=== PATIENT | female | born 1970 | race Caucasian/White ===

== ENCOUNTER 2019-08-14 11:14 | Emergency (ER) | payer OTHER, SELFPAY ==
--- NOTE | ~2019-08-14 | CT_ITS ---
EXAMINATION: CT brain wo con EXAM DATE: 08/14/2019 11:50 INDICATION: Headache, blurred vision to right eye. Right-sided facial droop, hemiparesis since Monday . TECHNIQUE: Spiral CT of the head was performed without contrast. Axial, coronal and sagittal images were reviewed. The dose-length product (DLP) for this examination was 605.33 mGy-cm. The exposure w as tailored according to patient size, and iterative reconstruction (ASIR) was used as additional dos e reduction technique. Comparison is made to prior examination from 09/09/2018. FINDINGS: There is no acute intraparenchymal hemorrhage. No evidence of intraparenchymal brain mass lesion. No evidence of acute infarction. There is no mass effect or midline shift. The ventricles are normal in size. There are no extra-axial collections. There are no acute calvarial fractures. T he orbits are unremarkable. Soft tissue is unremarkable. The visualized sinuses and mastoid air brian ls are well aerated. IMPRESSION: 1. No acute intracranial findings. Reviewed, dictated and finalized at location B.
[2019-08-14 11:18] VITALS: BP 159/75; PULSE 79; RESP 17; TEMP 36.9; O2SAT 95
--- NOTE | 2019-08-14 11:36 | PC.NURSE ---
Pt states for last 4 days she has started having R sided facial droop and then 3 days ago started having SAMAYOA. Pt states 5 days ago she bit her tongue and thought that started her symptoms. Pt states her PCP asked her to come to ER for investigation of temporal artheritis. Pt states she has RA and is immunocompromised. Pt states she has pain in her R temporal area and blurred vision. Pt is A&O x4. Pt has R sided facial droop. Pt taking steroid dose pack. Pt has no other neuro deficits.
[2019-08-14 12:05] LABS: Basophils Absolute Auto 0.1 K/mm3 (0.0-0.1); Basophils Percent Auto 0.4 % (0.2-1.2); Eosinophils Absolute Auto 0.2 K/mm3 (0-0.3); Eosinophils Percent Auto 0.9 % (0-4.4); Hematocrit 41.9 % (37.0-47.0); Hemoglobin 13.7 g/dL (12.0-15.0); Immature Granulocyte Absolute 0.12 K/mm3 (0.00-0.031); Immature Granulocyte Percent A 0.6 % (0-0.5); Lymphocytes Absolute Auto 3.51 K/mm3 (0.9-3.2); Lymphocytes Percent Auto 16.1 % (18.3-44.2); Mean Corpuscular HGB Conc 32.7 g/dl (32-36); Mean Corpuscular Hemoglobin 30.7 pg (26-34); Mean Corpuscular Volume 93.9 fl (80-100); Mean Platelet Volume 10.5 fl (7.4-10.4); Monocytes Absolute Auto 1.2 K/mm3 (0.1-0.6); Monocytes Percent Auto 5.5 % (2.6-8.5); Neutrophils Absolute Auto 16.7 K/mm3 (1.3-6.7); Neutrophils Percent Auto 76.5 % (45.5-73.1); Platelet Count Result 255 k/mm3 (150-375); Red Blood Count 4.46 M/mm3 (4.2-5.4); Red Cell Distribution Width 14.5 % (11.5-14.5); White Blood Count 21.8 K/mm3 (4.5-10.0)
--- NOTE | 2019-08-14 12:17 | ED.GENADULT ---
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 Patient denies any other deficits or complaints and on arrival is in the room in no distress Related Data Home Medications Medication Instructions Recorded Confirmed calcium carbonate [Calcium 500] 500 mg PO DAILY 05/24/19 06/03/19 duloxetine 30 mg PO BID 05/24/19 06/03/19 ergocalciferol (vitamin D2) 1,250 mcg PO DAILY 05/24/19 06/03/19 fluticasone propionate 50 mcg INTRANASAL PRN PRN 05/24/19 06/03/19 levothyroxine 50 mcg PO DAILY 05/24/19 06/03/19 pregabalin 150 mg PO DAILY 05/24/19 06/03/19 tramadol 50 mg PO PRN PRN 05/24/19 06/03/19 Allergies Allergy/AdvReac Type Severity Reaction Status Date / Time ciprofloxacin Allergy Severe JOINT PAIN. Verified 08/14/19 11:23 triamcinolone [From Kenalog] AdvReac Severe Muscle Pain Verified 08/14/19 11:23 sertraline AdvReac Unknown lethargic, Verified 08/14/19 11:23 couldn't function at all Review of Systems Review of Systems: All systems reviewed & are unremarkable except as noted in HPI and below PMFSH Past Medical History Medical History Asthma COPD (chronic obstructive pulmonary disease) Esophageal dysmotility Hypothyroid Surgical History Surgical History H/O hysterectomy for benign disease History of bilateral tubal ligation History of removal of ovarian cyst S/P tonsillectomy and adenoidectomy Status post breast augmentation Social History Social History (Updated 08/14/19 @ 12:41 by Chilo Schwab PA-C) Smoking status: Current every day smoker Exam Narrative: Exam Narrative: GENERAL: Well-appearing, well-nourished, and in no acute distress. HEAD: Normocephalic, atraumatic. Right temporal tenderness with no other deformities noted EYES: PERRLA and EOMI. ENT: Nares clear, no rhinorrhea or epistaxis. Mucous membranes moist. Oropharynx without tonsillar hypertrophy exudate or other lesions. Bilateral TMs pearly hood nonbulging NECK: Supple. No adenopathy or masses. CHEST: Clear to auscultation. No respiratory distress. No wheezes rales or rhonchi HEART: Regular rate and rhythm. No murmur heard. EXTREMITIES: Normal range of motion. No edema. SKIN: Warm, dry, no rash. NEURO: Cranial nerves II through XII grossly intact except for right-sided cranial nerve VII deficit with involvement of the right forehead. Alert and oriented x3. Normal speech and gait. Cerebellar intact PSYCH: Normal mood and affect. Course Course Emergency Course: Patient in the room in no distress aware of case findings treatment plan and diagnosis Vital Signs Vital signs: Vital Signs Temperature 98.5 F 08/14/19 11:18 Pulse Rate 79 08/14/19 11:18 Respiratory Rate 17 08/14/19 11:18 Blood Pressure 159/75 H 08/14/19 11:18 Pulse Oximetry 95 08/14/19 11:18 Temperature 98.5 F 08/14/19 11:18 Pulse Rate 79 08/14/19 11:18 Respiratory Rate 17 08/14/19 11:18 Blood Pressure 159/75 H 08/14/19 11:18 Pulse Oximetry 95 08/14/19 11:18 Medical Decision Making MDM Narrative Medical decision making narrative: Patient with findings consistent with Olmos's palsy. Patients headache was not sudden or maximal in onset. Subarachnoid hemorrhage is felt to be unlikey a
[2019-08-14 12:19] LABS: CRP < 0.5 mg/dL (<1.0)
[2019-08-14 12:51] LABS: Erythrocyte Sedimentation Rate 16 mm/hr (0-20)
== END 2019-08-14 13:11 | disposition home or self-care (01) ==
PROVIDERS: Emergency Medicine Emergency Medical Services; Emergency Provider Emergency Medicine; PCP Nurse Practitioner Adult Health
DX: G51.0 Bell's palsy (principal); J44.9 Chronic obstructive pulmonary disease, unspecified; E03.9 Hypothyroidism, unspecified; F17.200 Nicotine dependence, unspecified, uncomplicated
CPT/HCPCS: 36415; 70450; 85025; 85652; 86140; 99284

== ENCOUNTER 2021-04-26 09:29 | Outpatient (RCR) | payer OTHER, SELFPAY ==
[2021-04-26 14:19] VITALS: BP 140/60; PULSE 79; RESP 24; TEMP 36.3; O2SAT 96
[2021-04-26] MEDS: ACETAMINOPHEN 325 MG TABLET 650 MG PO (14:22)
[2021-04-26] MEDS: FAMOTIDINE 20 MG TABLET PO (14:23)
[2021-04-26] MEDS: diphenhydrAMINE HCl CAP 25 MG CAPSULE PO (14:23)
[2021-04-26 15:53] VITALS: BP 140/72
--- NOTE | 2021-04-27 09:25 | PC.NURSE ---
Called Ms Olivo and she stated she is doing better and slept well last night,the best she slept in a few days. She has no questions at this time.
== END 2021-04-26 17:00 ==
LOC: AMCINF 09:29
PROVIDERS: PCP Nurse Practitioner Adult Health; Visit Provider Internal Medicine Hematology & Oncology
DX: U07.1 COVID-19 (principal); D84.9 Immunodeficiency, unspecified
CPT/HCPCS: A9270; M0245; Q0245

== ENCOUNTER 2024-06-04 00:20 | Day surgery (SDC) | payer OTHER, SELFPAY ==
[2024-05-27 14:26] VITALS: BMI 24.3
--- OUTSIDE RECORDS SUMMARY | 2024-06-04 00:25 | XMS_ITS | Referral Summary ---
Author Organization [facility] Address [address] [place] [address] Care Team Providers Care Museum Registrar Name Role Phone Nica Noe SARAH Primary Care Provider [phone] Encounters Date Type Department Care Team Description 05/11/2024 3:00 PM CLUTCH OPERATOR Clinical Support [facility] [place] [address] [place] [address] Blood pressure check (Primary Dx) from Last 3 Months Allergies Active Allergy Reactions Criticality Noted Date Comments Ciprofloxacin Joint pain Reaction: joint pain, , Reaction: joint pain, , , Leflunomide Unknown High 04/06/2020 Medications gabapentin (NEURONTIN) 100 mg capsule daily Active methotrexate 2.5 mg tablet methotrexate sodium 2.5 mg tablet TK 5 TS PO 1 TIME WEEKLY IN THE MORNING AND IN THE ROBERT 03/03/20 20 Active buPROPion XL (Wellbutrin XL) 150 mg 24 hr tablet daily 02/15/20 13 Active traMADoL (ULTRAM) 50 mg tablet tramadol 50 mg tablet TK 1 T PO BID 03/15/20 20 Active vortioxetine (Trintellix) 10 mg tablet daily Active cyanocobalamin (Vitamin B-12) 1,000 mcg sublingual tablet Active albuterol HFA (ProAir HFA) 90 mcg/actuation inhaler ProAir HFA 90 mcg/actuation aerosol inhaler INHALE 2 PUFFS PO Q 4 H PRN 05/08/18 70 Active folic acid (FOLVITE) 1 mg tabletIndications:in flammatory arthritis-take with methotrexate Take 1 tablet (1 mg total) by mouth daily 90 tablet 3 06/23/19 23 Active phentermine (ADIPEX-P) 37.5 mg tabletIndications:We ight gain TAKE 1 TABLET(37.5 MG) BY MOUTH DAILY BEFORE BREAKFAST 30 tablet 09/22/19 23 Active levothyroxine (SYNTHROID) 100 mcg tablet Take 1 tablet (100 mcg total) by mouth daily 90 tablet 1 11/04/[address] (PROTONIX) 40 mg EC tabletIndications:Sy mptomatic Gastroesophageal Reflux Disease Take 1 tablet (40 mg total) by mouth daily 90 tablet 03/22/20 23 Active Active Problems Problem Noted Date Diagnosed Date Encounters for administrative purpose 10/06/2022 Assessment & Plan (10/06/2022 2:07 PM CDT): Financial forms completed for [employer]. Copy of forms made to be scanned in to EMR for review Patient is encouraged to call previous provider office to have records sent to this office for review Follow up as scheduled-sooner prn Overweight with body mass in dex (BMI) of 26 to 26.9 in adult 10/06/2022 Assessment & Plan (10/06/2022 2:10 PM CDT): Chronic- improving Continue with Phentermine 37.5 mg daily Continue healthy low fat, low calorie diet Increase activity (20 to 30 minutes at least 5 days a week) to help maintain healthy weight and lifestyle Will plan to stop Phentermine when BMI is 25 or lower Diverticulosis 06/23/2022 Encounter for medical examination to establish c are 06/23/2022 Assessment & Plan (06/23/2022 3:22 PM CLUTCH OPERATOR): Fasting labs ordered- cbc, cmp, lipids, tsh Follow up in 1 year-annual Future labs ordered Continue current medications as directed Gastroesophageal reflux disease without esophagi tis 06/23/2022 Assessment & Plan (06/23/2022 2:56 PM CLUTCH OPERATOR): GI consulted Avoid greasy, spicy, fried, fatty foods Order and continue Pantoprazole 40 mg daily Moderate episode of recurrent major depressive d isorder 06/23/2022 Assessment & Plan (10/06/2022 2:05 PM CDT): Chronic- stable wit current medication regimen Continue with Bupropion 150 mg daily and Trintellix 10 mg daily Encouraged to call and schedule appointment with behavioral counseling- we discussed the importance of having someone qualified to talk with to help with keeping depression controlled and that medication and counseling provide better results than medication alone Assessment & Plan (06/23/2022 2:59 PM CLUTCH OPERATOR): Continue current Bupropion and Trintellix Continue to monitor mood status Will plan on managing medications Encouraged to seek counseling-patient advised that medication and counseling together have more positive outcomes than medication alone Encouraged to seek emergency help if having suicidal thoughts Breast implant status 06/23/2022 Assessment & Plan (06/23/2022 2:57 PM CLUTCH OPERATOR): Bilateral breast implant Recent finding of left ruptured implant Consult Dr. Ugalde Weight gain 06/23/2022 Assessment & Plan (06/23/2022 3:17 PM CLUTCH OPERATOR): Encouraged to join club for water aerobics to help lose weight without pain to joints Healthy diet-low carb, low fat Lab ordered-TSH Continue levothyroxine as directed History of colon polyps 06/23/2022 Assessment & Plan (06/23/2022 3:03 PM CLUTCH OPERATOR): GI consult ordered for diagnostic screening Healthy diet Tobacco use 06/23/2022 Assessment & Plan (06/23/2022 3:07 PM CLUTCH OPERATOR): Encouraged to stop smoking We discussed health risks and worsening of pulmonary emphysema if continues to smoke Centrilobular emphysema 06/23/2022 Assessment & Plan (06/23/2022 3:17 PM CLUTCH OPERATOR): Stop smoking Plan to increase Bupropion if needed to help with smoking cessation Will plan to order ct chest-routine to monitor for worsening of emphysema Continue with albuterol inh as directed Arthritis 06/27/2013 Overview (08/11/2016): Inflammatory arthritis Assessment & Plan (06/23/2022 3:16 PM CLUTCH OPERATOR): Continue current medication methotrexate with folic acid Continue Tramadol as directed Resolved Problems Problem Noted Date Diagnosed Date Resolved Date History of nephrolithiasis 06/23/2022 0 06/23/2022 BMI 27.0-27.9,adult 06/23/2022 10/07/19 Assessment & Plan (06/23/2022 2:55 PM CLUTCH OPERATOR): Continue current medication phentermine to help manage weight control Phentermine ordered Healthy diet Water exercises Closed head injury 01/27/2021 Concussion with no loss of consciousness 01/27/2021 06/23/2022 Forehead contusion, initial encounter 01/27/2021 06/23/2022 Pleurisy 06/27/2013 06/23/2022 Overview (08/11/2016): Pleuritis Cardiomyopathy 06/27/2013 06/23/2022 Overview (08/11/2016): Cardiomyopathy Immunizations Name Administration Dates Next Due Influenza, Unspecified 06/23/2022(Deferr ed: Patient Refused),02/05/2021(Deferred: Patient Refused) Social History Tobacco Use Types Packs/Day Years Used Date Smoking Tobacco: Every Day Cigarettes Smokeless Tobacco: Never Tobacco Cessation:Ready to Q uit: Not Asked; Counseling Given: Yes Alcohol Use Standard Drinks/Week Comments No 0 (1 standard drink = 0.6 oz pur e alcohol) PHQ-2 Answer Date Recorded PHQ-2 Total Score (If total score is 3 or more points, staff should administer the PHQ-9) 0 10/06/2022 Comments No Sex and Gender Information Value Date Recorded Sex Assigned at Not on file Legal Sex Female 1:23 AM CLUTCH OPERATOR Gender Identity Not on file Sexual Orientation Not on file Last Filed Vital Signs Vital Sign Reading Time Taken Comments Blood Pressure 184/114 05/11/2024 3:08 PM CLUTCH OPERATOR Pulse 86 10/06/2022 1:37 PM CDT Temperature 37.1 ??C (98.8 ??F) 09/25/2021 3:21 PM CD T Respiratory Rate 18 10/06/2022 1:37 PM CDT Oxygen Saturation 96% 10/06/2022 1:37 PM CDT Inhaled Oxygen Concentration - - Weight 74.8 kg (165 lb) 10/06/2022 1:37 PM CDT Height 167.6 cm (5' 6 ) 10/06/2022 1:37 PM CDT Body Mass Index 26.63 10/06/2022 1:37 PM CDT Plan of Treatment Not on file Insurance Member Subscriber Plan / Payer ( fective 2021-Present) Name:Belinda Olivo Relation to Subscriber:Self Name:Belinda Olivo Payer ID:[id number] ([facility]) Group ID:[id number] Type:CIGNA HMO/PPO Address: [id number] [place] [phone] [facility] Member Subscriber Plan / Payer ( fective 2021-Present) Name:Belinda Olivo Relation to Subscriber:Self Name:Belinda Olivo Payer ID:[id number] (NA) Group ID:[id number] Type:CIGNA HMO/PPO Address: [address] [place] [address] [employer] Member Subscriber Plan / Payer (Ef fective 2021-Present) Name:Geovani Belinda Chelsea Relation to Subscriber:Self Name:Olivo Belinda L Payer ID:[id number] (NAIC) Group ID:[id number] Type:GAURI HMO/PPO Address: [facility] [id number] [place] [id number] Care Teams Museum Registrar Relationship Specialty Start Date End Date Nica Noe NP [address] [place] [id number] PCP - General Nurse Practitioner 05/11/24
--- OUTSIDE RECORDS SUMMARY | 2024-06-04 00:25 | XMS_ITS | Clinical Summary ---
Author Organization [facility] Address [address] [facility] [address] [place] [address] Phone Care Team Providers Care Automotive Service Assistant Name Role Phone Eli Pryor MD Primary Care Provider [phone] Allergies Active Allergy Reactions Criticality Noted Date Comments Fluocinolone Other (see Comments) 04/09/2015 cipro affects my joints Medications DULoxetine (CYMBALTA) [address] Particles Take 30 mg by mouth 2 times daily. Active aspirin EC 81 MG Tablet Delayed Response Take 81 mg by mouth daily. Active acetaminophen (TYLENOL) 325 MG Tablet Take 1 Tab by mouth every 4 hours as needed for Pain or Fever (for temperature greater than 100.4 F). Do not exceed 4000 mg of acetaminophen in 24 hour from all sources. 5 Active Active Problems No known active problems Social History Tobacco Use Types Packs/Day Years Used Date Smoking Tobacco: Former Cigarettes 1 32 0 02/04/1982 - 02/04/2014 Alcohol Use Standard Drinks/Week Comments Yes 0 (1 standard drink = 0.6 oz pur e alcohol) occasional beer Comments No Sex and Gender Information Value Date Recorded Sex Assigned at Not on file Legal Sex Female 9:59 PM CDT Gender Identity Not on file Sexual Orientation Not on file Last Filed Vital Signs Vital Sign Reading Time Taken Comments Blood Pressure 118/80 05/20/2015 8:30 AM REFRIGERATING MACHINE OPERATOR Pulse 60 05/20/2015 8:30 AM REFRIGERATING MACHINE OPERATOR Temperature 35.9 ??C (96.6 ??F) 04/09/2015 12:[address] Respiratory Rate 16 04/09/2015 12:05 PM REFRIGERATING MACHINE OPERATOR Oxygen Saturation 97% 04/09/2015 12:05 PM REFRIGERATING MACHINE OPERATOR Inhaled Oxygen Concentration - - Weight 58.5 kg (129 lb) 05/20/2015 8:30 AM REFRIGERATING MACHINE OPERATOR Height 167.6 cm (5' 6 ) 05/20/2015 8:30 AM REFRIGERATING MACHINE OPERATOR Body Mass Index 20.82 05/20/2015 8:30 AM REFRIGERATING MACHINE OPERATOR Plan of Treatment Health Maintenance Due Date Last Done Comments Hepatitis C Virus (HCV) Screening 1970 TdaP Immunization 1970 Hepatitis B Immunization (1 of 3 - 19+ 3-dose series) 01/18/1987 Colonoscopy 01/18/2013 Colorectal Cancer Screening 01/18/2013 Cologuard 01/18/2018 Immunochemical Fecal Occult Blood 01/18/2018 Mammogram 01/18/2018 Pneumococcal Immunization (5 0+ years) (1 of 1 - PCV) 01/18/2018 Zoster Immunization (1 of 2) 01/18/2018 Influenza Immunization (#1) 2024 SARS-COV-2 Immunization ( - season) 2024 Respiratory Syncytial Virus (RSV) Immunization (Adult) (1 - 1-dose 75+ series) 01/18/2043 Meningococcal Immunization (ACWY) Aged Out No longer eligible based on patient's age to complete this topic Pneumococcal Immunization Combined Aged Out No longer eligible based on patient's age to complete this topic Rotavirus Immunization Aged Out No lo nger eligible based on patient's age to complete this topic Care Teams Automotive Service Assistant Relationship Specialty Start Date End Date Eli Pryor MD [address] [facility] [address] [address] [place] [address] PCP - General Family Medicine 03/17/15
--- OUTSIDE RECORDS SUMMARY | 2024-06-04 00:25 | XMS_ITS | Referral Summary ---
Author Organization [facility] Address [address] [place] [address] [place] [address] Care Team Providers Care Ship Worker Name Role Phone Nica Noe AIDEE-PREFITTER Primary Care Provider + Addy Pepe MD Unavailable Pooja Miller Unavailable [phone] Source Comments [facility],non-owned Affiliates and Associated Physician Practices is amultiple site organization consisting of ambulatory clinics and hospital sitesin [place], [place], [place] and [place]. This disclosure is being madepursuant to the Care Everywhere program and may not contain all information available regarding this patient. Last updated 18.[facility] Encounters Date Type Department Care Team Description 05/23/2024 11:30 AM ORACLE R12 DEVELOPER Office Visit [facility] - Rheumatology [address] [place] [id number] Pooja Miller APRN-CNP from Last 3 Months Allergies Active Allergy Reactions Criticality Noted Date Comments Advair Diskus Other 04/06/2020 Ciprofloxacin Other Medium 04/06/2020 Reaction: joint pain, , Reaction: joint pain, , , Fluocinolone Other 04/09/2015 cipro affects my joints Kenalog Dizziness 04/06/2020 Leflunomide Renal Injury High 04/06/2020 Paroxetine Dizziness 04/06/2020 Rofecoxib Nausea and/or Vomiting 04/06/2020 Varenicline Other 04/06/2020 Medications * Be aware that medications may not be up to date on this document. Alwaysverify current medications with the patient. Medication Sig Dispensed Refills Start Date End Date Status methylPREDNISolone (MEDROL DOSEPAK) 4 MG tablet Take by mouth as needed 08/11/2019 Active pantoprazole EC (PROTONIX) 40 MG tablet Take 1 (one) tablet by mouth once daily 03/13/2020 Active traMADol (ULTRAM) 50 MG tablet 03/15/2020 Active albuterol HFA (PROVENTIL;VENTOLI N;PROAIR) 108 (90 Base) MCG/ACT inhaler ProAir HFA 90 mcg/actuation aerosol inhaler INHALE 2 PUFFS PO Q 4 H PRN Active vortioxetine (Trintellix) 10 MG tablet Take 1 (one) tablet by mouth once daily Active buPROPion XL 24hr (Wellbutrin-XL) 150 MG tablet Take 1 (one) tablet by mouth once daily Active Acetaminophen (TYLENOL EXTRA STRENGTH PO) Take 200 mg by mouth 2 times daily as needed Active levothyroxine (Synthroid) 100 MCG tablet Take 1 (one) tablet by mouth once daily 11/03/2022 Active methotrexate 2.5 MG tabletIndications: Undifferentiated inflammatory arthritis (HCC) Take 10 (ten) tablets by mouth every 7 days 25mg po qweek 120 tablet 1 11/20/2023 Active folic acid (Folvite) 1 MG tabletIndications: Undifferentiated inflammatory arthritis (HCC) Take 1 (one) tablet by mouth once daily 90 tablet 11/20/2023 Active adalimumab (Humira) 40 MG/0.8ML injection Inject 0.8 mL subcutaneously every 14 days Active lisinopril (Prinivil; Zestril) 20 MG tablet Take 1 (one) tablet by mouth once daily Active Active Problems Problem Noted Date Diagnosed Date Vertigo 04/06/2020 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 Neuropathy 04/06/2020 UC (ulcerative colitis) 04/06/2020 Esophageal motility disorder 04/06/2020 Rheumatoid arthritis of [facility] sites with negative rheumatoid factor 02/25/2020 Social History Tobacco Use Types Packs/Day Years Used Date Smoking Tobacco: Every Day Cigarettes Smokeless Tobacco: Never Tobacco Cessation:Ready to Q uit: Not Asked; Counseling Given: Not Answered Alcohol Use Standard Drinks/Week Comments No 0 (1 standard drink = 0.6 oz pur e alcohol) PHQ-2 Answer Date Recorded Patient Health Questionnaire-2 Score 0 11/20/2023 Sex and Gender Information Value Date Recorded Sex Assigned at Not on file Gender Identity Not on file Sexual Orientation Not on file Last Filed Vital Signs Vital Sign Reading Time Taken Comments Blood Pressure 136/86 05/23/2024 11:46 AM ORACLE R12 DEVELOPER Pulse 80 05/23/2024 11:46 AM ORACLE R12 DEVELOPER Temperature 36.6 ??C (97.9 ??F) 12/16/2020 8:52 AM CD T Respiratory Rate 18 05/23/2024 11:46 AM ORACLE R12 DEVELOPER Oxygen Saturation 96% 05/23/2024 11:46 AM ORACLE R12 DEVELOPER Inhaled Oxygen Concentration - - Weight 68.7 kg (151 lb 6.4 oz) 05/23/2024 11:46 AM ORACLE R12 DEVELOPER Height 167.6 cm (5' 6 ) 05/23/2024 11:46 AM ORACLE R12 DEVELOPER Body Mass Index 24.44 05/23/2024 11:46 AM ORACLE R12 DEVELOPER Plan of Treatment Upcoming Encounters Date Type Department Care Team (Late st Contact Info) Description 08/20/2024 10:30 AM CDT Office Visit [facility] - Rheumatology [address] [facility] [address] [place] [address] Pooja Miller, PORTAINER OPERATOR-PREFITTER [address] [facility] [address] [place] [address] Procedures Procedure Name Priority Date/Time Associated Diagnosis Comments HEPATITIS PANEL 02/19/2024 12:58 PM CDT from Last 3 Months or Most Recently Relevant to Health Maintenance Results * HEPATITIS PANEL (02/19/2024 12:58 PM CDT) Hepatitis A Virus Antibody Total NON-REACTI VE NON-REACT [facility] Comment: For additional information, please refer to http://[employer]Plus.Doctor Fun/faq/BTM214 (This link is being provided for informational/ educational purposes only.) Hepatitis B Virus Surface Antibody NON-REACTI VE NON-REACT [facility] Hepatitis B Virus Surface Antigen NON-REACTI VE NON-REACT [facility] Comment: For additional information, please refer to http://[employer]Plus.Citizenside.Chosen.fm/faq/SPR131 (This link is being provided for informational/ educational purposes only.) Hepatitis B Core Virus Antibody Total NON-REACTI VE NON-REACT [facility] Pattern Comment: For additional information, please refer to http://100Plus.Doctor Fun/faq/KJB300 (This link is being provided for informational/ educational purposes only.) Hepatitis C Antibody NON-REACTI VE NON-REACT [facility] Comment: HCV antibody was non-reactive. There is no laboratory evidence of HCV infection. In most cases, no further action is required. However, if recent HCV exposure is suspected, a test for HCV RNA (test code 55562) is suggested. For additional information please refer to http://100Plus.Doctor Fun/faq/FYH91x7 (This link is being provided for informational/ educational purposes only.) REPORT COMMENT: FASTING:YES Test Performed at: [facility] [address] [place], [place] ??[phone] MK GARIBAY MD 02/19/2024 12:5 8 PM CDT 02/19/2024 12:58 PM CDT Addy Pepe MD [facility] Organization Address City/State/ZIP Co de Phone Number [facility] [address] [place] [address] from Last 3 Months or Most Recently Relevant to Health Maintenance Care Teams Ship Worker Relationship Specialty Start Date End Date Nica Noe APRN-PREFITTER [facility] [place] [id number] PCP - General Nurse Practitioner 12/14/22 [place] [address] [place] [id number] Rheumatology 12/14/22 Pooja Miller APRN-PREFITTER [address] [place] [address] Nurse Practitioner 05/23/24
--- OUTSIDE RECORDS SUMMARY | 2024-06-04 00:25 | XMS_ITS | Patient Health Summary ---
Author Organization [facility] Address [address] [address] Care Team Providers Care Lumber Chain Offbearer Name Role Phone Nica Noe PELLETISING EXTRUDER OPERATOR-SOLAR LAB TECHNICIAN Primary Care Provider + Addy Pepe MD Unavailable Pooja Miller APRN-SOLAR LAB TECHNICIAN Unavailable [phone] Note from [facility],non-owned Affiliates and Associated Physician Practices is amultiple site organization consisting of ambulatory clinics and hospital sitesin [place], [place], [place] and [place]. This disclosure is being madepursuant to the Care Everywhere program and may not contain all information available regarding this patient. Last updated 18.[facility] Allergies * Advair Diskus(Other) * Ciprofloxacin(Other) -Medium Criticality * Fluocinolone(Other) * Kenalog(Dizziness) * Leflunomide(Renal Injury) -High Criticality * Paroxetine(Dizziness) * Rofecoxib(Nausea and/or Vomiting) * Varenicline(Other) Medications * Be aware that medications may not be up to date on this document. Alwaysverify current medications with the patient. * methylPREDNISolone (MEDROL DOSEPAK) 4 MG tablet(Started 08/11/2019) Take by mouth as needed * pantoprazole EC (PROTONIX) 40 MG tablet(Started 03/13/2020) Take 1 (one) tablet by mouth once daily * traMADol (ULTRAM) 50 MG tablet(Started 03/15/2020) * albuterol HFA (PROVENTIL;VENTOLIN;PROAIR) 108 (90 Base) MCG/ACT inhaler ProAir HFA 90 mcg/actuation aerosol inhaler INHALE 2 PUFFS PO Q 4 H PRN * vortioxetine (Trintellix) 10 MG tablet Take 1 (one) tablet by mouth once daily * buPROPion XL 24hr (Wellbutrin-XL) 150 MG tablet Take 1 (one) tablet by mouth once daily * Acetaminophen (TYLENOL EXTRA STRENGTH PO) Take 200 mg by mouth 2 times daily as needed * levothyroxine (Synthroid) 100 MCG tablet(Started 11/03/2022) Take 1 (one) tablet by mouth once daily * methotrexate 2.5 MG tablet(Started 11/20/2023) Take 10 (ten) tablets by mouth every 7 days 25mg po qweek 1 refill by 11/19/2024 * folic acid (Folvite) 1 MG tablet(Started 11/20/2023) Take 1 (one) tablet by mouth once daily * adalimumab (Humira) 40 MG/0.8ML injection Inject 0.8 mL subcutaneously every 14 days * lisinopril (Prinivil; Zestril) 20 MG tablet Take 1 (one) tablet by mouth once daily Active Problems Problem Noted Date Diagnosed Date Vertigo 04/06/2020 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 Neuropathy 04/06/2020 UC (ulcerative colitis) 04/06/2020 Esophageal motility disorder 04/06/2020 Rheumatoid arthritis of [facility] sites with negative rheumatoid factor 02/25/2020 Social [...] Comments Blood Pressure 136/86 05/23/2024 11:46 AM GUARD RANGE Pulse 80 05/23/2024 11:46 AM GUARD RANGE Temperature 36.6 ??C (97.9 ??F) 12/16/2020 8:52 AM CD T Respiratory Rate 18 05/23/2024 11:46 AM GUARD RANGE Oxygen Saturation 96% 05/23/2024 11:46 AM GUARD RANGE Inhaled Oxygen Concentration - - Weight 68.7 kg (151 lb 6.4 oz) 05/23/2024 11:46 AM GUARD RANGE Height 167.6 cm (5' 6 ) 05/23/2024 11:46 AM GUARD RANGE Body Mass Index 24.44 05/23/2024 11:46 AM GUARD RANGE Procedures * QUANTIFERON-TB GOLD PLUS 1-TUBE(Performed 02/19/2024) * HEPATITIS PANEL(Performed 02/19/2024) * C-REACTIVE PROTEIN(Performed 02/19/2024) * CBC W AUTO DIFFERENTIAL(Performed 02/19/2024) * ERYTHROCYTE SEDIMENTATION RATE(Performed 02/19/2024) * COMPREHENSIVE METABOLIC PANEL(Performed 02/19/2024) * URIC ACID BLOOD(Performed 02/19/2024) * US EXTREMITY RIGHT COMP JOINT(Performed 10/26/2023) Performed for Seronegative arthritis, Immunosuppressed status (HCC), High risk medication use, Polyarthralgia * URIC ACID BLOOD(Performed 05/19/2023) Performed for Immunosuppressed status (HCC), High risk medication use, Polyarthralgia * ERYTHROCYTE SEDIMENTATION RATE(Performed 05/19/2023) Performed for Immunosuppressed status (HCC), High risk medication use, Polyarthralgia * C-REACTIVE PROTEIN(Performed 05/19/2023) Performed for Immunosuppressed status (HCC), High risk medication use, Polyarthralgia * COMPREHENSIVE METABOLIC PANEL(Performed 05/19/2023) Performed for Immunosuppressed status (HCC), High risk medication use, Polyarthralgia * CBC W AUTO DIFFERENTIAL(Performed 05/19/2023) Performed for Immunosuppressed status (HCC), High risk medication use, Polyarthralgia * CYCLIC CITRULLINATED PEPTIDE(CCP) AB IGG(Performed 02/09/2023) Performed for Seronegative arthritis, Immunosuppressed status (HCC), High risk medication use, Polyarthralgia * KAROLINA BLOOD SCREEN W/REFLEX TITER(Performed 02/09/2023) Performed for Seronegative arthritis, Immunosuppressed status (HCC), High risk medication use, Polyarthralgia * CBC W AUTO DIFFERENTIAL(Performed 02/09/2023) Performed for Seronegative arthritis, Immunosuppressed status (HCC), High risk medication use, Polyarthralgia * CK BLOOD(Performed 02/09/2023) Performed for Seronegative arthritis, Immunosuppressed status (HCC), High risk medication use, Polyarthralgia * COMPREHENSIVE METABOLIC PANEL(Performed 02/09/2023) Performed for Seronegative arthritis, Immunosuppressed status (HCC), High risk medication use, Polyarthralgia * C-REACTIVE PROTEIN(Performed 02/09/2023) Performed for Seronegative arthritis, Immunosuppressed status (HCC), High risk medication use, Polyarthralgia * ERYTHROCYTE SEDIMENTATION RATE(Performed 02/09/2023) Performed for Seronegative arthritis, Immunosuppressed status (HCC), High risk medication use, Polyarthralgia * RHEUMATOID FACTOR BLOOD QUANTITATIVE(Performed 02/09/2023) Performed for Seronegative arthritis, Immunosuppressed status (HCC), High risk medication use, Polyarthralgia * URIC ACID BLOOD(Performed 02/09/2023) Performed for Seronegative arthritis, Immunosuppressed status (HCC), High risk medication use, Polyarthralgia * XR KNEE BILAT 3VW(Performed 12/14/2022) Performed for Seropositive rheumatoid arthritis (HCC), Polyarthralgia, History of ulcerative colitis, Joint stiffness * XR CHEST 2VW(Performed 12/14/2022) Performed for Seropositive rheumatoid arthritis (HCC), Polyarthralgia, History of ulcerative colitis, Joint stiffness * XR HAND BILAT 3VW OR MORE(Performed 12/14/2022) Performed for Seropositive rheumatoid arthritis (HCC), Polyarthralgia, History of ulcerative colitis, Joint stiffness * URIC ACID BLOOD(Performed 12/14/2022) Performed for Seropositive rheumatoid arthritis (HCC), Polyarthralgia, History of ulcerative colitis, Joint stiffness * TSH+FREE T4+FREE T3(Performed 12/14/2022) Performed for Seropositive rheumatoid arthritis (HCC), Polyarthralgia, History of ulcerative colitis, Joint stiffness, Thyroid disorder * SS-B (SJOGREN'S) ANTIBODY(Performed 12/14/2022) Performed for Seropositive rheumatoid arthritis (HCC), Polyarthralgia, History of ulcerative colitis, Joint stiffness, Thyroid disorder * SS-A (SJOGREN'S) ANTIBODY(Performed 12/14/2022) Performed for Seropositive rheumatoid arthritis (HCC), Polyarthralgia, History of ulcerative colitis, Joint stiffness, Thyroid disorder * RHEUMATOID FACTOR BLOOD QUANTITATIVE(Performed 12/14/2022) Performed for Seropositive rheumatoid arthritis (HCC), Polyarthralgia, History of ulcerative colitis, Joint stiffness, Thyroid disorder * QUANTIFERON TB-GOLD(Performed 12/14/2022) Performed for Seropositive rheumatoid arthritis (HCC), Polyarthralgia, History of ulcerative colitis, Joint stiffness, Thyroid disorder * HEPATITIS C ANTIBODY(Performed 12/14/2022) Performed for Seropositive rheumatoid arthritis (HCC), Polyarthralgia, History of ulcerative colitis, Joint stiffness, Thyroid disorder * HEPATITIS B SURFACE ANTIGEN W RFLX CONFIRMATION(Performed 12/14/2022) Performed for Seropositive rheumatoid arthritis (HCC), Polyarthralgia, History of ulcerative colitis, Joint stiffness, Thyroid disorder * FERRITIN(Performed 12/14/2022) Performed for Seropositive rheumatoid arthritis (HCC), Polyarthralgia, History of ulcerative colitis, Joint stiffness, Thyroid disorder * ERYTHROCYTE SEDIMENTATION RATE(Performed 12/14/2022) Performed for Seropositive rheumatoid arthritis (HCC), Polyarthralgia, History of ulcerative colitis, Joint stiffness, Thyroid disorder * CYCLIC CITRUL PEPTIDE ANTIBODY IGG/IGA (CCP)(Performed 12/14/2022) Performed for Seropositive rheumatoid arthritis (HCC), Polyarthralgia, History of ulcerative colitis, Joint stiffness, Thyroid disorder * C-REACTIVE PROTEIN(Performed 12/14/2022) Performed for Seropositive rheumatoid arthritis (HCC), Polyarthralgia, History of ulcerative colitis, Joint stiffness, Thyroid disorder * COMPREHENSIVE METABOLIC PANEL(Performed 12/14/2022) Performed for Seropositive rheumatoid arthritis (HCC), Polyarthralgia, History of ulcerative colitis, Joint stiffness, Thyroid disorder * CK BLOOD(Performed 12/14/2022) Performed for Seropositive rheumatoid arthritis (HCC), Polyarthralgia, History of ulcerative colitis, Joint stiffness, Thyroid disorder * CBC W AUTO DIFFERENTIAL(Performed 12/14/2022) Performed for Seropositive rheumatoid arthritis (HCC), Polyarthralgia, History of ulcerative colitis, Joint stiffness, Thyroid disorder * KAROLINA BLOOD SCREEN W/REFLEX TITER(Performed 12/14/2022) Performed for Seropositive rheumatoid arthritis (HCC), Polyarthralgia, History of ulcerative colitis, Joint stiffness, Thyroid disorder * CULTURE BLOOD(Performed 01/12/2014) * CULTURE BLOOD(Performed 01/12/2014) Results * QUANTIFERON-TB GOLD PLUS 1-TUBE (02/19/2024 1:00 PM CDT) Pathologist [facility] QuantiFERON TB Gold Plus NEGATIVE NEGATIVE [facility] Comment: Negative test result. M. tuberculosis complex infection unlikely. NIL 0.03 IU/mL [facility] MITOGEN MINUS NIL RESULT 8.25 IU/mL [facility] TB1-NIL <0.00 IU/mL [facility] TB2-NIL <0.00 IU/mL [facility] Comment: The Nil tube value reflects the background interferon gamma immune response of the patient's blood sample. This value has been subtracted from the patient's displayed TB and Mitogen results. Lower than expected results with the Mitogen tube prevent false-negative Quantiferon readings by detecting a patient with a potential immune suppressive condition and/or suboptimal pre-analytical specimen handling. The TB1 Antigen tube is coated with the M. tuberculosis-specific antigens designed to elicit responses from TB antigen primed CD4+ helper T-lymphocytes. The TB2 Antigen tube is coated with the M. tuberculosis-specific antigens designed to elicit responses from TB antigen primed CD4+ helper and CD8+ cytotoxic T-lymphocytes. For additional information, please refer to https://Qufenqi.Motionloft/faq/BYA074 (This link is being provided for informational/ educational purposes only.) REPORT COMMENT: FASTING:YES Test Performed at: [employer] [facility] [id number] [place], [place] ??[phone] MK GARIBAY MD 02/19/2024 1:00 PM CDT 02/19/2024 1:00 PM CDT Addy Pepe MD LAB - CHEMISTRY [place] [facility] Organization Address City/State/ZIP Co de Phone Number [facility] [address] [place] [address] * HEPATITIS PANEL (02/19/2024 12:58 PM CDT) Pathologist [facility] Hepatitis A Virus Antibody Total NON-REACTI VE NON-REACT ROBER [facility] Comment: For additional information, please refer to http://Qufenqi.Motionloft/faq/SWI984 (This link is being provided for informational/ educational purposes only.) Hepatitis B Virus Surface Antibody NON-REACTI VE NON-REACT [facility] Hepatitis B Virus Surface Antigen NON-REACTI VE NON-REACT [facility]ER [facility] Comment: For additional information, please refer to http://education.Motionloft/faq/AQH218 (This link is being provided for informational/ educational purposes only.) Hepatitis B Core Virus Antibody Total NON-REACTI VE NON-REACT ROBER [facility] Comment: For additional information, please refer to http://Qufenqi.Motionloft/faq/SRP124 (This link is being provided for informational/ educational purposes only.) Hepatitis C Antibody NON-REACTI VE NON-REACT [facility]ER [facility] Comment: HCV antibody was non-reactive. There is no laboratory evidence of HCV infection. In most cases, no further action is required. However, if recent HCV exposure is suspected, a test for HCV RNA (test code 45246) is suggested. For additional information please refer to http://Qufenqi.Motionloft/faq/AMV42f4 (This link is being provided for informational/ educational purposes only.) REPORT COMMENT: FASTING:YES Test Performed at: [facility] [place], [place] ??[phone] MK GARIBAY MD 02/19/2024 12:5 8 PM CDT 02/19/2024 12:58 PM CDT Addy Pepe MD LAB - CHEMISTRY [place] Performing Organization Address City/State/[facility] Co [place] Phone Number [facility] [address] [place] [address] * URIC ACID BLOOD (02/19/2024 12:57 PM CDT) Only the most recent of4 resultswithin the time period is included. Uric Acid 3.8 2.5 - 7.0 mg/dL [facility] Comment: Therapeutic target for gout patients: <6.0 mg/dL ?? Test Performed at: [facility] [phone] MK GARIBAY MD 02/19/2024 12:5 7 PM CDT 02/19/2024 12:57 PM CDT Addy Pepe MD LAB - CHEMISTRY [place] Performing Organization Address City/[facility] de Phone Number [facility] [address] [place] [address] * C-REACTIVE PROTEIN (02/19/2024 12:57 PM CDT) Only the most recent of4 resultswithin the time period is included. Pathologist [facility] C-Reactive Protein <3.0 <8.0 mg/L [facility] Comment: REPORT COMMENT: FASTING:YES Test Performed at: [facility] [place] ??[phone] MK GARIBAY MD 02/19/2024 12:5 7 PM CDT 02/19/2024 12:57 PM CDT Addy Pepe MD LAB - CHEMISTRY [place] Performing Organization Address [facility] de Phone Number [facility] [id number] [place] [address] * ERYTHROCYTE SEDIMENTATION RATE (02/19/2024 12:57 PM CDT) Only the most recent of4 resultswithin the time period is included. Pathologist [facility] Erythrocyte Sedimentation Rate Westergren 6 < OR = 30 mm/h [facility] Comment: Test Performed at: [facility] ??[phone] MK GARIBAY MD 02/19/2024 12:5 7 PM CDT 02/19/2024 12:57 PM CDT Addy Pepe MD LAB - HEMATOLOGY ORD ERAREYNA Performing Organization Address [facility] Co de Phone Number [facility] [address] [place] [address] * CBC WITH DIFFERENTIAL (02/19/2024 12:57 PM CDT) Only the most recent of4 resultswithin the time period is included. Pathologist [facility] White Blood Cell Count 6.1 3.8 - 10.8 Thousand/u L [facility] RBC 3.87 3.80 - 5.10 Million/uL [facility] Hemoglobin 12.6 11.7 - 15.5 g/dL [facility] Hematocrit 38.0 35.0 - 45.0 % [facility] MCV 98.2 80.0 - 100.0 fL [facility] MCH 32.6 27.0 - 33.0 pg [facility] MCHC 33.2 32.0 - 36.0 g/dL [facility] Comment: For adults, a slight decrease in the calculated MCHC value (in the range of 30 to 32 g/dL) is most likely not clinically significant; however, it should be interpreted with caution in correlation with other red cell parameters and the patient's clinical condition. RDW 14.3 11.0 - 15.0 % [facility] Platelet Count 206 140 - 400 Thousand/u L [facility] MPV 11.2 7.5 - 12.5 fL [facility] Neutrophil Absolute 2800 1500 - 7800 cells/uL [facility] Lymphocytes Absolute 2666 850 - 3900 cells/uL [facility] Absolute Monocytes 470 200 - 950 cells/uL [facility] Eosinophils Absolute 92 15 - 500 cells/uL [facility] Basophils Absolute 73 0 - 200 cells/uL [facility] Granulocytes % 45.9 % [facility] Lymphocytes % 43.7 % [facility] Monocytes % 7.7 % [facility] Eosinophils % 1.5 % [facility] Basophils % 1.2 % [facility] Comment: Test Performed at: [employer] [id number] [place], [place] ??[phone] MK GARIBAY MD 02/19/2024 12:5 7 PM CDT 02/19/2024 12:57 PM CDT Addy Pepe MD LAB - HEMATOLOGY ORD ERABLES [facility] [address] [place] [address] * COMPREHENSIVE METABOLIC PANEL (02/19/2024 12:57 PM CDT) Only the most recent of4 resultswithin the time period is included. Pathologist [facility] Glucose 97 65 - 99 mg/dL [facility] Comment: ? Fasting reference interval BUN 15 7 - 25 mg/dL [facility] Creatinine 0.73 0.50 - 1.03 mg/dL [facility] eGFR by Cystatin C 96 > OR = 60 mL/min/1. 73m2 [facility] BUN/Creatinine Ratio SEE NOTE: (calc) [facility] Comment: ?? Not Reported: BUN and Creatinine are within ?? reference range. ? Sodium 143 135 - 146 mmol/L [facility] Potassium 4.2 3.5 - 5.3 mmol/L [facility] Chloride 108 98 - 110 mmol/L [facility] CO2 26 20 - 32 mmol/L [facility] Calcium 8.8 8.6 - 10.4 mg/dL [facility] Protein Total 6.4 6.1 - 8.1 g/dL [facility] Albumin 4.0 3.6 - 5.1 g/dL [facility] Globulin Total 2.4 1.9 - 3.7 g/dL (calc) [facility] Albumin/Globulin Ratio 1.7 1.0 - 2.5 (calc) [facility] Bilirubin Total 0.7 0.2 - 1.2 mg/dL [facility] Alkaline Phosphatase 84 37 - 153 U/L [facility] AST 17 10 - 35 U/L [facility] ALT 19 6 - 29 U/L [facility] Comment: Test Performed at: [employer] [place] ??[phone] MK GARIBAY MD 02/19/2024 12:5 7 PM CDT 02/19/2024 12:57 PM CDT Addy Pepe MD LAB - CHEMISTRY [place] Performing Organization Address [facility]/ZIP Co de Phone Number [facility] [address] [place] [address] * US EXTREM RIGHT COMPLETE (JOINT RELATED) (10/26/2023) Anatomical Region Laterality Modality Upper Extremity, Lower Extremity Ultrasound 10/26/2023 Addy Pepe MD US ORDERABLES * RHEUMATOID FACTOR BLOOD QUANTITATIVE (02/09/2023 9:31 AM CDT) Only the most recent of2 resultswithin the time period is included. Rheumatoid Factor <14 <14 IU/mL [facility] Comment: Test Performed at: [facility] [address] [place] ??[phone] NEISHA SCALES,PHD Blood BLOOD SPECIMEN / Unknown 02/09/2023 9:31 AM CDT 02/09/2023 9:32 AM CDT Addy Pepe MD LAB - CHEMISTRY [place] [facility] [address] [place] [address] * KAROLINA BLOOD SCREEN W/REFLEX TITER (02/09/2023 9:31 AM CDT) Only the most recent of2 resultswithin the time period is included. Pathologist [facility] KAROLINA Screen NEGATIVE NEGATIVE [facility] Comment: KAROLINA IFA is a first line screen for detecting the presence of up to approximately 150 autoantibodies in various autoimmune diseases. A negative KAROLINA IFA result suggests an KAROLINA-associated autoimmune disease is not present at this time, but is not definitive. If there is high clinical suspicion for Sjogren's syndrome, testing for anti-SS-A/Ro antibody should be considered. Anti-Sadie-1 antibody should be considered for clinically suspected inflammatory myopathies. AC-0: Negative International Consensus on KAROLINA Patterns (https://doi.org/10.1515/aqbj-0542-7437) For additional information, please refer to http://education.Fitcline/faq/JAI812 (This link is being provided for informational/ educational purposes only.) ?? Test Performed at: [facility] [place] ??[phone] NEISHA SCALES,PHD Blood BLOOD SPECIMEN / Unknown 02/09/2023 9:31 AM CDT 02/09/2023 9:32 AM CDT Addy Pepe MD LAB - CHEMISTRY [place] Performing Organization Address [facility] Co de Phone Number [facility] [address] [place] [address] * CYCLIC CITRULLINATED PEPTIDE(CCP) AB IGG (02/09/2023 9:31 AM CDT) [facility] Cyclic Citrullinated Peptide Antibody IgG <16 UNITS [facility] Comment: Reference Range Negative: ?<20 Weak Positive: ? 20-39 Moderate Positive: ?? 40-59 Strong Positive: ? >59 REPORT COMMENT: FASTING:YES Test Performed at: [employer] [address] [place], [place] ??[phone] NEISHA SCALES,PHD Blood BLOOD SPECIMEN / Unknown 02/09/2023 9:31 AM CDT 02/09/2023 9:32 AM CDT Addy Pepe MD LAB - CHEMISTRY [place] Performing Organization Address [facility] Co de Phone Number [facility] [address] [place] [address] * CK BLOOD (02/09/2023 9:31 AM CDT) Only the most recent of2 resultswithin the time period is included. CK 130 29 - 143 U/L [facility] Comment: Test Performed at: [employer] [address] [place], [place] ??[phone] NEISHA SCALES,PHD Blood BLOOD SPECIMEN / Unknown 02/09/2023 9:31 AM CDT 02/09/2023 9:32 AM CDT Addy Pepe MD LAB - CHEMISTRY [place] Performing Organization Address [facility] de Phone Number [facility] [address] [place] [phone] * XR KNEE BILAT 3VW (12/14/2022 11:20 AM CDT) Anatomical Region Laterality Modality Lower Extremity Radiographic Sybil ging 12/14/2022 1:47 PM CDT Impressions 12/14/2022 1:51 PM CDT IMPRESSION: Normal bilateral knees > Interpreting Provider: Kimo Lilly MD on 12/14/2022 1:51 PM Narrative 12/14/2022 1:51 PM CDT Right knee four views Left knee four views INDICATION: Seizure positive rheumatoid arthritis, history of ulcerative colitis Right knee: The femoral tibial spacing is normal. Tiny amount of suprapatellar joint fluid. No fracture or bone destructive process. Left knee: No periarticular demineralization. There is good preservation of joint spacing. No fracture or bone destructive process. Procedure Note Kimo Lilly MD - 12/14/2022 Right knee four views Left knee four views INDICATION: Seizure positive rheumatoid arthritis, history of ulcerative colitis Right knee: The femoral tibial spacing is normal. Tiny amount of suprapatellar joint fluid. No fracture or bone destructive process. Left knee: No periarticular demineralization. There is good preservationof joint spacing. No fracture or bone destructive process. IMPRESSION: Normal bilateral knees > Interpreting Provider: Kimo Lilly MD on 12/14/2022 1:51 PM Addy Pepe MD DIAGNOSTIC IMAGING O RDERABLES * XR HAND BILAT 3VW OR MORE (12/14/2022 11:20 AM CDT) Anatomical Region Laterality Modality Upper Extremity, Wrist / Hand Ra diographic Imaging 12/14/2022 3:50 PM CDT Narrative 12/14/2022 3:52 PM CDT PROCEDURE(s): XR HAND BILAT 3VW OR MORE DATE AND TIME OF EXAM(s): 12/14/2022 11:21 AM INDICATION(s): M05.9: Rheumatoid arthritis with rheumatoid factor, unspecified (CMS/HCC) M25.50: Pain in unspecified joint Z87.19: Personal history of other diseases of the digestive system M25.60: Stiffness of unspecified joint, not elsewhere classified COMPARISON(s): None available. FINDINGS/IMPRESSION: There is no acute fracture or dislocation. Degenerative changes of the first carpometacarpal joint on the right is noted. No significant soft tissue swelling is seen. > Interpreting Provider: Beau Torres MD on 12/14/2022 3:52 PM Procedure Note Beau Torres MD - 12/14/2022 PROCEDURE(s): XR HAND BILAT 3VW OR MORE DATE AND TIME OF EXAM(s): 12/14/2022 11:21 AM INDICATION(s): M05.9: Rheumatoid arthritis with rheumatoid factor, unspecified(CMS/HCC) M25.50: Pain in unspecified joint Z87.19: Personal history of other diseases of the digestive system M25.60: Stiffness of unspecified joint, not elsewhere classified COMPARISON(s): None available. FINDINGS/IMPRESSION: There is no acute fracture or dislocation. Degenerative changes of the first carpometacarpal joint on the right is noted. No significant soft tissue swelling is seen. > Interpreting Provider: Beau Torres MD on 12/14/2022 3:52 PM Addy Pepe MD DIAGNOSTIC IMAGING O RDERABLES * XR CHEST 2VW (12/14/2022 11:20 AM CDT) Anatomical Region Laterality Modality Chest Radiographic Sybil ging 12/14/2022 11:4 7 AM CDT Impressions 12/14/2022 11:48 AM CDT IMPRESSION: 1. Lung hyperinflation. 2. Shortening of the distal right clavicle. > Interpreting Provider: Logan Gardner MD on 12/14/2022 11:48 AM Narrative 12/14/2022 11:48 AM CDT PROCEDURE: ??XR CHEST 2VW, DATE/TIME OF EXAM: ??12/14/2022 11:21 AM, LOCATION [facility] INDICATION: M05.9: Rheumatoid arthritis with rheumatoid factor, unspecified (CMS/HCC) M25.50: Pain in unspecified joint Z87.19: Personal history of other diseases of the digestive system M25.60: Stiffness of unspecified joint, not elsewhere classified HISTORY: Rheumatoid arthritis. Joint pain. Ulcerative colitis. COMPARISON: None PROCEDURE: ??XR CHEST 2VW FINDINGS: 2 views of the chest were performed. The heart size is normal. There is no lung consolidation. There is a largest inspiratory volume. There is shortening at the right clavicle which could represent findings of previous trauma or less likely associated with arthropathy. Clinical correlation is recommended. Procedure Note Logan Gardner MD - 12/14/2022 PROCEDURE: XR CHEST 2VW, DATE/TIME OF EXAM: 12/14/2022 11:21 AM, LOCATION [facility] INDICATION: M05.9: Rheumatoid arthritis with rheumatoid factor, unspecified(CMS/HCC) M25.50: Pain in unspecified joint Z87.19: Personal history of other diseases of the digestive system M25.60: Stiffness of unspecified joint, not elsewhere classified HISTORY: Rheumatoid arthritis. Joint pain. Ulcerative colitis. COMPARISON: None PROCEDURE: XR CHEST 2VW FINDINGS: 2 views of the chest were performed. The heart size is normal. There isno lung consolidation. There is a largest inspiratory volume. There is shortening at the right clavicle which could represent findings ofprevious trauma or less likely associated with arthropathy. Clinical correlationis recommended. IMPRESSION: 1. Lung hyperinflation. 2. Shortening of the distal right clavicle. > Interpreting Provider: Logan Gardner MD on 12/14/2022 11:48 AM Addy Pepe MD DIAGNOSTIC IMAGING O RDERABLES * (ABNORMAL) TSH+FREE T4+FREE T3 (12/14/2022 10:09 AM CDT) Pathologist [facility] TSH 0.026(L) 0.450 - 4.500 uIU/mL [facility] INSURANCE BILL T3 Free 3.2 2.0 - 4.4 pg/mL [facility] INSURANCE BILL T4 Free 1.91(H) 0.82 - 1.77 ng/dL [facility] INSURANCE BILL Blood BLOOD SPECIMEN / Unknown 12/14/2022 10:09 AM CDT 12/14/2022 Narrative Resulting Agency Comment Lab Testing performed at: [facility] ??Critical access hospital [phone] Addy Pepe MD LAB [facility] INSURANCE BILL [address] [place] [address] * CYCLIC CITRUL PEPTIDE ANTIBODY IGG/IGA (CCP) (12/14/2022 10:09 AM CDT) [facility] CCP Antibodies IgG/IgA 11 0 - 19 units [facility] INSURANCE BILL Comment: ? Negative ? <20 ? Weak positive ?20 - 39 ? Moderate positive ??40 - 59 ? Strong positive ?>59 Blood BLOOD SPECIMEN / Unknown 12/14/2022 10:09 AM CDT 12/14/2022 Narrative Resulting Agency Comment Lab Testing performed at: [facility] [address] ??Critical access hospital [phone] Addy Pepe MD LAB - SEROLOGY ORDER MAXIMINO [facility] INSURANCE BILL [address] [place] [address] * SS-B (SJOGREN'S) ANTIBODY (12/14/2022 10:09 AM CDT) Sjogren's Antibodies (SSB) <0.2 0.0 - 0.9 AI [facility] INSURANCE BILL Blood BLOOD SPECIMEN / Unknown 12/14/2022 10:09 AM CDT 12/14/2022 Narrative Resulting Agency Comment Lab Testing performed at: [facility] [address] ??Critical access hospital [id number] Addy Pepe MD LAB - CHEMISTRY GISELLE [place] Performing Organization Address City/[facility] Co de Phone Number [facility] INSURANCE BILL [address] [place] [address] * SS-A (SJOGREN'S) ANTIBODY (12/14/2022 10:09 AM CDT) Sjogren's Antibodies (SSA) <0.2 0.0 - 0.9 AI [facility] BILL Blood BLOOD SPECIMEN / Unknown 12/14/2022 10:09 AM CDT 12/14/2022 Narrative Resulting Agency Comment Lab Testing performed at: [facility] [address] ??Critical access hospital [phone] Addy Pepe MD LAB - CHEMISTRY GISELLE [place] [facility] INSURANCE BILL [address] [place] [address] * QUANTIFERON TB-GOLD (12/14/2022 10:09 AM CDT) Pathologist [facility] QuantiFERON Incubation Incubation performed. [facility] INSURANCE BILL QuantiFERON Criteria [facility] INSURANCE BILL Comment: QuantiFERON-TB Gold Plus is a qualitative indirect test for M tuberculosis infection (including disease) and is intended for use in conjunction with risk assessment, radiography, and other medical and diagnostic evaluations. The QuantiFERON-TB Gold Plus result is determined by subtracting the Nil value from either TB antigen (Ag) value. The Mitogen tube serves as a control for the test. QuantiFERON TB1 Ag Value 0.02 IU/mL [facility] INSURANCE BILL QuantiFERON TB2 Ag Value 0.01 IU/mL [facility] INSURANCE BILL QuantiFERON Nil Value 0.01 IU/mL [facility] INSURANCE BILL QuantiFERON Mitogen Value >10.00 IU/mL [facility] INSURANCE BILL QuantiFERON-TB Gold Plus Negative Negative [facility] INSURANCE BILL Comment: No response to M tuberculosis antigens detected. Infection with M tuberculosis is unlikely, but high risk individuals should be considered for additional testing (ATS/IDSA/CDC Clinical Practice Guidelines, 2017). The reference range is an Antigen minus Nil result of <0.35 IU/mL. Chemiluminescence immunoassay methodology Blood BLOOD SPECIMEN / Unknown 12/14/2022 10:09 AM CDT 12/14/2022 Narrative Resulting Agency Comment Lab Testing performed at: [facility] [place] [address] [facility] ??Critical access hospital [id number] Addy Pepe MD LAB - CHEMISTRY GISELLE [place] Performing Organization Address City/[facility]/ZIP Co de Phone Number [facility] INSURANCE BILL [address] [place] [address] * HEPATITIS B SURFACE ANTIGEN W RFLX CONFIRMATION (12/14/2022 10:09 AM CDT) Pathologist [facility] Hepatitis B Virus Surface Antigen Negative Negative [facility] INSURANCE BILL Blood BLOOD SPECIMEN / Unknown 12/14/2022 10:09 AM CDT 12/14/2022 Narrative Resulting Agency Comment Lab Testing performed at: [facility] [address] ??Critical access hospital [phone] Addy Pepe MD LAB - CHEMISTRY GISELLE [place] Performing Organization Address City/[facility]/ZIP Co de Phone Number [facility] INSURANCE BILL [address] [place] [address] * HEPATITIS C ANTIBODY (12/14/2022 10:09 AM CDT) Hepatitis C Antibody Non Reactive Non Reactive [facility] INSURANCE BILL Comment: HCV antibody alone does not differentiate between previously resolved infection and active infection. Equivocal and Reactive HCV antibody results should be followed up with an HCV RNA test to support the diagnosis of active HCV infection. Blood BLOOD SPECIMEN / Unknown 12/14/2022 10:09 AM CDT 12/14/2022 Narrative Resulting Agency Comment Lab Testing performed at: [facility] [address] ??Critical access hospital [phone] Addy Pepe MD LAB - CHEMISTRY GISELLE M[place] Performing Organization Address City/[facility]/ZIP Co de Phone Number [facility] INSURANCE BILL [address] [place] [address] * (ABNORMAL) FERRITIN (12/14/2022 10:09 AM CDT) [facility] Ferritin 195(H) 15 - 150 ng/mL [facility] INSURANCE BILL Blood BLOOD SPECIMEN / Unknown 12/14/2022 10:09 AM CDT 12/14/2022 Narrative Resulting Agency Comment Lab Testing performed at: [facility] [address] ??Critical access hospital [phone] Addy Pepe MD LAB - CHEMISTRY GISELLE [place]ONT[place] Performing Organization Address City/[facility]/ZIP Co de Phone Number [facility] INSURANCE BILL [address] [place] [address] * CULTURE BLOOD (01/12/2014 7:15 PM CDT) Only the most recent of2 resultswithin the time period is included. Pathologist [facility] Culture Blood No Growth at 5 days [facility] Blood specimen (specimen) BLOOD SPECIMEN / Unknown 01/12/2014 7:15 PM CDT 01/12/2014 8:44 PM CDT Narrative [facility] - 01/17/2014 8:45 PM CDT AndersonSpecimen#[id number] [place] Loc/Rm/Bed: ED// Historical Provider LAB - MICROBIOLOG Y ORDERABLES [facility] [address] [place], [place] [address] [place] [address] Care Teams Lumber Chain Offbearer Relationship Specialty Start Date End Date Nica Noe APRN-SOLAR LAB TECHNICIAN [facility] [place] [address] PCP - General Nurse Practitioner 12/14/22 [place] [address] [place] [address] Rheumatology 12/14/22 Pooja Miller, PELLETISING EXTRUDER OPERATOR-SOLAR LAB TECHNICIAN [address] [place] [address] Nurse Practitioner 05/23/24
--- OUTSIDE RECORDS SUMMARY | 2024-06-04 00:25 | XMS_ITS | Clinical Summary ---
Author Organization [facility] Address [address] [place] [address] [place] [address] Care Team Providers Care Grinding Room Inspector Name Role Phone Nica Noe BUS DISPATCHER INTERSTATE-CAMP HOUSEKEEPER Primary Care Provider + Addy Pepe MD Unavailable Pooja Miller APRN-CAMP HOUSEKEEPER Unavailable [phone] Source Comments [facility],non-owned Affiliates and Associated Physician Practices is amultiple site organization consisting of ambulatory clinics and hospital sitesin [place], [place], [place] and [place]. This disclosure is being madepursuant to the Care Everywhere program and may not contain all information available regarding this patient. Last updated 18.[facility] Allergies Active Allergy Reactions Criticality Noted Date [...] Esophageal motility disorder 04/06/2020 Rheumatoid arthritis of [facility] sites with negative rheumatoid factor 02/25/2020 Encounters Date Type Department Care Team Description 05/23/2024 11:30 AM OVEN TECHNICIAN Office Visit [facility] - Rheumatology [address] [place] [address] Pooja Miller APRN-RAFI from Last 3 Months Social History Tobacco Use Types Packs/Day Years [...] Comments Blood Pressure 136/86 05/23/2024 11:46 AM OVEN TECHNICIAN Pulse 80 05/23/2024 11:46 AM OVEN TECHNICIAN Temperature 36.6 ??C (97.9 ??F) 12/16/2020 8:52 AM CD T Respiratory Rate 18 05/23/2024 11:46 AM OVEN TECHNICIAN Oxygen Saturation 96% 05/23/2024 11:46 AM OVEN TECHNICIAN Inhaled Oxygen Concentration - - Weight 68.7 kg (151 lb 6.4 oz) 05/23/2024 11:46 AM OVEN TECHNICIAN Height 167.6 cm (5' 6 ) 05/23/2024 11:46 AM OVEN TECHNICIAN Body Mass Index 24.44 05/23/2024 11:46 AM OVEN TECHNICIAN Plan of Treatment Upcoming Encounters Date Type Department Care Team (Late st Contact Info) Description 08/20/2024 10:30 AM CDT Office Visit [facility] - Rheumatology [address] [address] [place] [address] Pooja Miller, BUS DISPATCHER INTERSTATE-CAMP HOUSEKEEPER [address] [facility] [address] [place] [address] Health Maintenance Due Date Last Done Comments COLOGUARD (AGES 45-75) - COL ON CA SCREENING 1968 COLON MONITORING 1968 COLONOSCOPY - COLON CA SCREENING 1968 CT COLONOGRAPHY - COLON CA SCREENING 1968 Colorectal Cancer Screening 1968 FIT - COLON CA SCREENING 1968 FLEX SIG - COLON CA SCREENING 1968 LIPID TESTING 1968 MAMMOGRAM 1968 PAP SMEAR 1968 COVID-19 VACCINE (#1) 01/18/1973 HIV SCREENING 01/18/1983 DTAP/TDAP/TD VACCINES (1 - Tdap) 01/18/1987 HEPATITIS B VACCINE (1 of 3 - 19+ 3-dose series) 01/18/1987 PNEUMOCOCCAL VACCINE 50+ (1 of 2 - PCV) 01/18/1987 PNEUMOCOCCAL VACCINE (1 of 2 - PCV) 01/18/1987 ZOSTER VACCINE (1 of 2) 01/18/1987 INFLUENZA VACCINE (#1) 2024 DEPRESSION SCREENING 05/08/2024 11/20/2023 HEPATITIS C SCREENING Completed 02/19/2024 , 12/14/2022 HIB VACCINE Aged Out No longer eligi ble based on patient's age to complete this topic HPV VACCINE Aged Out No longer eligi ble based on patient's age to complete this topic MENINGOCOCCAL (Group B) VACCINE Aged Out No longer eligible b ased on patient's age to complete this topic MENINGOCOCCAL VACCINE Aged Out No james mayur eligible based on patient's age to complete this topic Procedures Procedure Name Priority Date/Time Associated Diagnosis Comments HEPATITIS PANEL 02/19/2024 12:58 PM CDT from Last 3 Months or Most Recently Relevant to Health Maintenance Results * HEPATITIS PANEL (02/19/2024 12:58 PM CDT) Hepatitis A Virus Antibody Total NON-REACTI VE NON-REACT [facility] Comment: For additional information, please refer to http://[employer]/faq/JBR287 (This link is being provided for informational/ educational purposes only.) Hepatitis B Virus Surface Antibody NON-REACTI VE NON-REACT [facility] Hepatitis B Virus Surface Antigen NON-REACTI VE NON-REACT [facility] Comment: For additional information, please refer to http://[employer]/faq/THY392 (This link is being provided for informational/ educational purposes only.) Hepatitis B Core Virus Antibody Total NON-REACTI VE NON-REACT [facility] Comment: For additional information, please refer to http://[employer]/faq/YGG817 (This link is being provided for informational/ educational purposes only.) Hepatitis C Antibody NON-REACTI VE NON-REACT [facility] Comment: HCV antibody was non-reactive. There is no laboratory evidence of HCV infection. In most cases, no further action is required. However, if recent HCV exposure is suspected, a test for HCV RNA (test code 54041) is suggested. For additional information please refer to http://[employer]/faq/GUY96g2 (This link is being provided for informational/ educational purposes only.) REPORT COMMENT: FASTING:YES Test Performed at: [facility] [address] ??[phone] MK GARIBAY MD 02/19/2024 12:5 8 PM CDT 02/19/2024 12:58 PM CDT Addy Pepe MD LAB - CHEMISTRY GISELLE MONTAGUE [facility] Organization Address City/State/ZIP Co de Phone Number [facility] [address] [place] [address] from Last 3 Months or Most Recently Relevant to Health Maintenance Care Teams Grinding Room Inspector Relationship Specialty Start Date End Date Nica Noe APRN-CNP [address] [place] [address] [facility] [address] [place] [address] PCP - General Nurse Practitioner 12/14/22 [place] [address] [place] [address] Rheumatology 12/14/22 Pooja Miller APRN-CAMP HOUSEKEEPER [address] [place] [address] Nurse Practitioner 05/23/24
--- OUTSIDE RECORDS SUMMARY | 2024-06-04 00:25 | XMS_ITS | Clinical Summary ---
Author Organization [facility] Address [address] [place] [address] Care Team Providers Care Barrel Scraper Name Role Phone BrentNica cabral SARAH Primary Care Provider [phone] Allergies Active Allergy Reactions Criticality Noted Date [...] 2:07 PM CDT): Financial forms completed for [employer] assistance. Copy of forms made to be scanned [...] 06/23/2022 Assessment & Plan (06/23/2022 3:22 PM VISUAL BASIC PROGRAMMER): Fasting labs ordered- cbc, cmp, lipids, tsh Follow up in 1 year-annual Future labs ordered Continue current medications as directed Gastroesophageal reflux disease without esophagi tis 06/23/2022 Assessment & Plan (06/23/2022 2:56 PM VISUAL BASIC PROGRAMMER): GI consulted Avoid greasy, spicy, fried, fatty [...] alone Assessment & Plan (06/23/2022 2:59 PM VISUAL BASIC PROGRAMMER): Continue current Bupropion and Tr[employer]ix Continue to monitor mood status Will plan on managing medications Encouraged to seek counseling-patient advised that medication and counseling together have more positive outcomes than medication alone Encouraged to seek emergency help if having suicidal thoughts Breast implant status 06/23/2022 Assessment & Plan (06/23/2022 2:57 PM VISUAL BASIC PROGRAMMER): Bilateral breast implant Recent finding of left ruptured implant Consult Dr. Ugalde Weight gain 06/23/2022 Assessment & Plan (06/23/2022 3:17 PM VISUAL BASIC PROGRAMMER): Encouraged to join club for water aerobics to help lose weight without pain to joints Healthy diet-low carb, low fat Lab ordered-TSH Continue levothyroxine as directed History of colon polyps 06/23/2022 Assessment & Plan (06/23/2022 3:03 PM VISUAL BASIC PROGRAMMER): GI consult ordered for diagnostic screening Healthy diet Tobacco use 06/23/2022 Assessment & Plan (06/23/2022 3:07 PM VISUAL BASIC PROGRAMMER): Encouraged to stop smoking We discussed health risks and worsening of pulmonary emphysema if continues to smoke Centrilobular emphysema 06/23/2022 Assessment & Plan (06/23/2022 3:17 PM VISUAL BASIC PROGRAMMER): Stop smoking Plan to increase Bupropion if needed to help with smoking cessation Will plan to order ct chest-routine to monitor for worsening of emphysema Continue with albuterol inh as directed Arthritis 06/27/2013 Overview (08/11/2016): Inflammatory arthritis Assessment & Plan (06/23/2022 3:16 PM VISUAL BASIC PROGRAMMER): Continue current medication methotrexate with folic acid Continue Tramadol as directed Resolved Problems Problem Noted Date Diagnosed Date Resolved Date History of nephrolithiasis 06/23/2022 0 06/23/2022 BMI 27.0-27.9,adult 06/23/2022 10/07/19 Assessment & Plan (06/23/2022 2:55 PM VISUAL BASIC PROGRAMMER): Continue current medication phentermine to help manage weight control Phentermine ordered Healthy diet Water exercises Closed head injury 01/27/2021 Concussion with no loss of consciousness 01/27/2021 06/23/2022 Forehead contusion, initial encounter 01/27/2021 06/23/2022 Pleurisy 06/27/2013 06/23/2022 Overview (08/11/2016): Pleuritis Cardiomyopathy 06/27/2013 06/23/2022 Overview (08/11/2016): Cardiomyopathy Encounters Date Type Department Care Team Description 05/11/2024 3:00 PM VISUAL BASIC PROGRAMMER Clinical Support [facility] [place] [address] [place] [address] Blood pressure check (Primary Dx) from Last 3 Months Immunizations Name Administration Dates Next Due Influenza, Unspecified 06/23/2022(Deferr ed: Patient Refused),02/05/2021(Deferred: Patient Refused) Surgical History Surgery Date Site/Laterality Comments OTHER SURGICAL HISTORY 1984 cone biopsy OTHER SURGICAL HISTORY 1991 D&C x 2 AUGMENTATION MAMMOPLASTY 2003 breast augmentation OTHER SURGICAL HISTORY removal of cysts from ovaries OTHER SURGICAL HISTORY removal of cysts from tongue OTHER SURGICAL HISTORY 2011 knee surgery right OTHER SURGICAL HISTORY 2012 bresast biopsy left OTHER SURGICAL HISTORY 2013 cardiac catheter - perforated artery TUBAL LIGATION 2001 Bilateral tubal ligation SECTION 1997 section HYSTERECTOMY 2004 Hysterectomy Medical History Medical History Date Comments Hx Other Medical miscarriage Hx Other Medical colitis Pulmonary emphysema (HCC) emphys mercy Hx Other Medical psorisis Hx Other Medical esophogeal phyllis lity disorder Hx Other Medical spontaneous pne umothorax Hx Other Medical Headache, migra ine Asthma Asthma Hx Other Medical fibrocystic bruce ast disease Hx Other Medical scoliosis of th e neck Hx Other Medical bulging discs c 4/c5 Hx Other Medical anxiety/panic d isorder Pleurisy pleurisy Hx Other Medical myocardial jose a nary syndrome Hx Other Medical myocardial isch emia Hx Other Medical sporatic hypert ension intermittent Gastroesophageal reflux disease GERD Arthritis Arthritis Depression Depression 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 Psoriasis Psoriasis Ruptured left breast implant Cardiomyopathy (HCC) 06/27/2013 Cardiomyopa thy Forehead contusion, initial encounter 01/27/2021 Concussion with no loss of consciousness 01/28/20 Closed head injury 01/27/2021 History of nephrolithiasis 06/23/2022 BMI 27.0-27.9,adult 06/23/2022 Social History Tobacco Use Types Packs/Day Years [...] on file Legal Sex Female 1:23 AM VISUAL BASIC PROGRAMMER Gender Identity Not on file Sexual Orientation Not on file Obstetrics History Last Filed Vital Signs Vital Sign Reading Time Taken Comments Blood Pressure 184/114 05/11/2024 3:08 PM VISUAL BASIC PROGRAMMER Pulse 86 10/06/2022 1:37 PM CDT Temperature [...] 10/06/2022 1:37 PM CDT Plan of Treatment Health Maintenance Due Date Last Done Comments Breast Cancer Screening-Mammogram 1968 Colon Cancer Screening-Colonoscopy 1968 Hepatitis C Screening 1968 Pneumococcal vaccine <65 (1 of 2 - PCV) 01/18/1974 DTaP/Tdap/Td Vaccine (1 - Tdap) 01/18/1979 Hepatitis B Screening 01/18/1986 Zoster Vaccine (1 of 2) 01/18/1987 Covid-19 Vaccine (3 - Pfizer risk series) 11/14/2020 10/17/2020, 09/26/2020 Regular Well Visit/Exam 18-64 06/23/2023 06/23/2022 Depression Screening 10/07/2023 10/06/2022, 06/23/19 Influenza Vaccine (#1) [phone] [place] [address] [employer] Member Subscriber Plan / Payer ( fective 2021-Present) Name:Belinda Olivo Relation to Subscriber:Self Name:Belinda Olivo Payer ID:[id number] (NA) Group ID:[id number] Type:CIG[employer] HMO/PPO Address: [phone] [place] [phone] [facility] Member Subscriber Plan / Payer ( fective 2021-Present) Name:Belinda Olivo Relation to Subscriber:Self Name:Belinda Olivo Payer ID:[id number] (NA) Group ID:[id number] Type:CIGNA HMO/PPO Address: [address] [place] [address] [facility] Subscriber Plan / Payer (Ef fective 2021-Present) Name:Belinda Olivo [place] Relation to Subscriber:Self Name:Belinda Olivo Payer ID:[id number] (NAIC) Group ID:[id number] Type:[facility] HMO/PPO Address: [facility] [id number] [place] [id number] Care Teams Barrel Scraper Relationship Specialty Start Date End Date Nica Noe NP [address] [place] [address] PCP - General Nurse Practitioner 05/11/24
--- OUTSIDE RECORDS SUMMARY | 2024-06-04 00:25 | XMS_ITS | CONTINUITY OF CARE DOCUMENT ---
Author Name jorge a, jorge a Address Unknown Organization [facility] Address [address] [place] [address] [address] [place] [address] Phone [phone] Care Team Providers Care Stroke Program Coordinator Name Role Phone Ever HANSON, Jesus Salamanca Unavailable ISAI FOOD BEVERAGE MANAGER, CARL Unavailable [phone] MARY JANE MENA MD Unavailable ENCOUNTERS Date Type Provider Location Encounter Diagnosis - In-person encounter Office Visit Jesus Curtis MD [facility] VITAL SIGNS Date Observation Value Provider blood pressure, diastolic 82 mm[Hg] Deshawn Higgins RN blood pressure, systolic 119 mm[Hg] To Higgins RN pulse rate 86 /min To Higgins RN oxygen saturation, oximetry 97 % To Higgins RN respiratory rate E&M 16 /min To yates RN Body Mass Index (Ratio) 17.66 kg/m2 To Higgins RN weight E&M 109 [lb_av] To Higgins RN height E&M 66 [in_i] To Higgins RN RESULTS Date Observation Value Provider Reference Range Interpretation Location 8 platelet count 418 10*3/uL Lore Mckay 8 hematocrit, blood 37.4 % Lore Mckay HISTORY OF MEDICATION USE Medication Status Instructions Dates Provider Indications Com ments TYLENOL EXTRA STRENGTH TABLET active To Higgins RN PROAIR HFA AEROSOL SOLUTION active 2 puffs twice daily To Higgins RN PANTOPRAZOLE SODIUM 40 MG ORAL TABLET DELAYED RELEASE completed - 7 To Higgins RN ASPIRIN 325 MG ORAL TABLET completed ONE TAB. DAILY - 7 To Higgins RN DSS CAPS completed bid - 7 To Higgins RN HYOSCYAMINE SULFATE 0.125 MG ORAL TABLET completed tid - 7 To Higgins RN OXYCODONE-ACETAMI NOPHEN 5-325 MG ORAL TABLET active 1-2 tabs po q 6 hrs prn pain 2 Yolanda Kimbrough RN SOCIAL HISTORY Date Observation Value Provider drug use no To Higgins RN passive cigarette smoke exposure no To Higgins RN smoking history, total pack/day 1/ To Higgins RN smoking history, total pack/year 31 To Higgins RN cigarette use yes To Higgins RN smoking, date started 1981 Miguelangel bonilla RN social history E&M Marital Status: Divorc ed To Higgins RN caffeine use, averag e drinks per day yes To Higgins RN smoking status current every day smoker Geovani Higgins RN social history reviewed E&M reviewed To Higgins RN MENTAL STATUS Date Observation Value Provider assessment of judgme nt and insight E&M Alert and oriented to time, place and person. Mood and affect are normal. To Higgins RN INSURANCE PROVIDERS Payer name Policy type / Coverage type [place] red green party ID [employer] OPEN ACCESS Other [id number] TREATMENT PLAN Date Name Performer hosp f/u : T he following medications were removed from the medication list: Aspirin 325 Mg Tabs (Aspirin) ..... One tab. daily BP today: 119/82 Prior BP: / () S tress Echo Findings: Severe hypertension during the recovery. ECHOCARDIOGRAPHIC EVIDENCE OF ISCHEMIA. - CNE (04/11/2013) Jesus Curtis MD hosp f/u : H er updated medication list for this problem includes: Proair Hfa Aers (Albuterol sulfate aers) ..... 2 puffs twice daily BP today: 119/82 Prior BP: / () Pulmonary Functions Reviewed: O 2 sat: 97 (05/03/2013) Jesus Curtis MD HISTORY OF PROCEDURES Procedure Date Procedure Name Provider Procedure Notes S tatus EKG Jesus Curtis MD compl eted
[2024-06-04 08:37] VITALS: BP 145/78; PULSE 80; RESP 18; TEMP 36.2; O2SAT 98
[2024-06-04] MEDS: LACTATED RINGERS 1,000 ML 150 ML IV CONT (08:47)
--- NOTE | 2024-06-04 09:31 | PM.HPGS ---
History of Present Illness History of Present Illness Consent: Risks, benefits, and alternatives have been discussed and questions answered. Patient agrees to proceed with procedure. Chief complaint: family hx malignant neoplasm digestive system Narrative: Belinda Olivo is a 54 year old female who presents for colonoscopy secondary to a family history of colon cancer in her mother and maternal aunt. Last 2019 Review of Systems Review of Systems: All systems reviewed & are unremarkable except as noted in HPI and below PMFSH Past Medical History Medical History (Updated 06/04/24 @ 09:33 by Doe Reeder MD) Family history of colon cancer Hypothyroid Asthma COPD (chronic obstructive pulmonary disease) Esophageal dysmotility Surgical History Surgical History Status post breast augmentation S/P tonsillectomy and adenoidectomy History of removal of ovarian cyst History of bilateral tubal ligation H/O hysterectomy for benign disease Social History Social History (Updated 12/22/22 @ 08:41 by Monica Freitas MA) Smoking packs per day: 1 Smoking cigarettes per day: 20.0 Years smoked: 35 Smoking pack-years: 35.00 Smoking status: Current every day smoker Tobacco type: cigarettes Alcohol intake: never Substance use: never Substance use type: does not use Lack of Transportation: No Lack of Food: Never True Current Housing: I Have Housing Concerned About Future Housing: No Difficulty Paying Gas/Electric Bills: No Difficulty Paying for Meds: No Currently Unemployed: No Education: Trade/Vocational Certificate Difficulty w/ Childcare or Family Care: No Living arrangements: alone Occupation/Education: occupation 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[place] [address] Gender identity (if verbalized by the patient): Female Spiritual care concerns: No Meds Home Medications and Allergies Home Medications ?Medication ?Instructions ?Recorded ?Confirmed ?Type Methotrexate .Route 12/22/22 12/11/23 History albuterol sulfate 90 mcg/actuation 2 inh inhalation Q4H PRN 12/22/22 05/27/24 History aerosol inhaler bronchospasm folic acid 1 mg tablet 1 mg PO DAILY 12/22/22 06/04/24 History vortioxetine 10 mg tablet 10 mg PO DAILY 12/22/22 06/04/24 History (Trintellix) gabapentin 100 mg capsule 100 mg PO QHS #90 caps 04/20/23 06/04/24 Rx pantoprazole 40 mg tablet,delayed 40 mg PO QAM #90 tabs 04/20/23 06/04/24 Rx release bupropion HCl 150 mg 24 hr tablet, 150 mg PO QAM #90 tabs 11/13/23 06/04/24 Rx extended release levothyroxine 75 mcg tablet See Rx Instructions .Route 02/14/24 06/04/24 Rx .COMPLEX #30 tabs tramadol 100 mg tablet 50 mg (1/2 x 100 mg) PO Q6H PRN 03/12/24 06/04/24 Rx pain #90 tabs lisinopril 10 mg tablet See Rx Instructions .Route 05/16/24 06/04/24 Rx .COMPLEX #90 tabs adalimumab 40 mg/0.8 mL 40 mg subcut Q14D 05/27/24 05/27/24 History subcutaneous syringe kit (Humira) Allergies Allergy/AdvReac Type Severity Reaction Status Date / Time ciprofloxacin Allergy Severe JOINT PAIN. Verified 06/04/24 08:35 triamcinolone (From Kenalog) AdvReac Severe Muscle Pain Verified 06/04/24 08:35 sertraline AdvReac Unknown lethargic, Verified 06/04/24 08:35 couldn't function at all Leflunomide Allergy Severe Unknown Uncoded 06/04/24 08:35 Vital Signs Vital Signs - 24 hr 06/04/24 08:37 Temperature 97.1 F L Pulse Rate 80 Respiratory Rate 18 Blood Pressure 145/78 H Pulse Oximetry 98 Oxygen Delivery Room Air Exam Const: General: comfortable and no acute distress HENMT: Face/Nose/Sinus: Normal nares present Eyes: General: appearance normal, both eyes and all related structures Neck: Neck: no JVD Resp: Auscultation: clear to auscultation bilaterally Cardio: Rate: regular rate Rhythm: regular rhythm GI: Inspection: non-distended GI Palp: Yes Soft to palpation Skin: General skin exam: normal color Neuro: General: gait normal Speech: normal speech Extrem: General: normal to inspection Psych: Mental Status: mental status grossly normal Assessment and Plan Assessment and plan (1) Family history of colon cancer: Code(s): Z80.0 - Family history of malignant neoplasm of digestive organs Status: Acute Assessment and Plan: colonoscopy
--- NOTE | 2024-06-04 09:36 | P.PNAN_ITS ---
Anes - Initial Pre Proc Eval Procedure: Operation Date: 06/04/24 10:00 Proposed Procedures p Screening Colonoscopy - Doe Reeder MD Date/Time: 06/04/24 09:36 Surgeon: Doe Reeder MD Pre Op Diagnosis: family hx malignant neoplasm digestive system Patient Data Age: 54 Gender: F Height: 1.68 m Weight: 67.5 kg Last Vital Signs Temp 97.1 F L 06/04/24 08:37 Pulse 80 06/04/24 08:37 Resp 18 06/04/24 08:37 BP 145/78 H 06/04/24 08:37 Pulse Ox 98 06/04/24 08:37 O2 Del Method Room Air 06/04/24 08:37 Allergies Allergy/AdvReac Type Severity Reaction Status Date / Time ciprofloxacin Allergy Severe JOINT PAIN. Verified 06/04/24 08:35 triamcinolone (From Kenalog) AdvReac Severe Muscle Pain Verified 06/04/24 08:35 sertraline AdvReac Unknown lethargic, Verified 06/04/24 08:35 couldn't function at all Leflunomide Allergy Severe Unknown Uncoded 06/04/24 08:35 Home Medications ?Medication ?Instructions ?Recorded ?Confirmed ?Type Methotrexate .Route 12/22/22 12/11/23 History albuterol sulfate 90 mcg/actuation 2 inh inhalation Q4H PRN 12/22/22 05/27/24 History aerosol inhaler bronchospasm folic acid 1 mg tablet 1 mg PO DAILY 12/22/22 06/04/24 History vortioxetine 10 mg tablet 10 mg PO DAILY 12/22/22 06/04/24 History (Trintellix) gabapentin 100 mg capsule 100 mg PO QHS #90 caps 04/20/23 06/04/24 Rx pantoprazole 40 mg tablet,delayed 40 mg PO QAM #90 tabs 04/20/23 06/04/24 Rx release bupropion HCl 150 mg 24 hr tablet, 150 mg PO QAM #90 tabs 11/13/23 06/04/24 Rx extended release levothyroxine 75 mcg tablet See Rx Instructions .Route 02/14/24 06/04/24 Rx .COMPLEX #30 tabs tramadol 100 mg tablet 50 mg (1/2 x 100 mg) PO Q6H PRN 03/12/24 06/04/24 Rx pain #90 tabs lisinopril 10 mg tablet See Rx Instructions .Route 05/16/24 06/04/24 Rx .COMPLEX #90 tabs adalimumab 40 mg/0.8 mL 40 mg subcut Q14D 05/27/24 05/27/24 History subcutaneous syringe kit (Humira) Patient hx anesthesia problems: none Family hx anesthesia problems: none Results Review: All pre-operative results and documents have been reviewed as part of the pre- operative evaluation. [facility] Past Medical History Medical History Rheumatoid arthritis Family history of colon cancer Hypothyroid Asthma COPD (chronic obstructive pulmonary disease) Esophageal dysmotility Surgical History Surgical History Status post breast augmentation S/P tonsillectomy and adenoidectomy History of removal of ovarian cyst History of bilateral tubal ligation H/O hysterectomy for benign disease Social History Social History Smoking packs per day: 1 Smoking cigarettes per day: 20.0 Years smoked: 35 Smoking pack-years: 35.00 Smoking status: Current every day smoker Tobacco type: cigarettes Alcohol intake: never Substance use: never Substance use type: does not use Lack of Transportation: No Lack of Food: Never True Current Housing: I Have Housing Concerned About Future Housing: No Difficulty Paying Gas/Electric Bills: No Difficulty Paying for Meds: No Currently Unemployed: No Education: Trade/Vocational Certificate Difficulty w/ Childcare or Family Care: No Living arrangements: alone Occupation/Education: occupation 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 Informed Consent: The patient's anesthetic plan and its attendant risks and benefits were discussed with the patient/family/POA. Questions were solicited and answers provided to the satisfaction of the patient/family/POA.
[2024-06-04 10:02] VITALS: BP 129/62; PULSE 75; RESP 21; O2SAT 99
[2024-06-04 10:12] VITALS: BP 128/73; PULSE 69; RESP 22; O2SAT 100
[2024-06-04 10:22] VITALS: BP 133/77; PULSE 73; RESP 19; O2SAT 100
== END 2024-06-04 10:36 | disposition home or self-care (01) ==
PROVIDERS: PCP Nurse Practitioner Adult Health; Visit Provider Internal Medicine Gastroenterology
PROC: 0DJD8ZZ Inspection of Lower Intestinal Tract, Via Natural or Artificial Opening Endoscopic (ICD-10-PCS; CPT 45378; principal; 2024-06-04 10:00)
DX: Z12.11 Encounter for screening for malignant neoplasm of colon (principal); D12.3 Benign neoplasm of transverse colon; K57.30 Diverticulosis of large intestine without perforation or abscess without bleeding; Z80.0 Family history of malignant neoplasm of digestive organs; F17.210 Nicotine dependence, cigarettes, uncomplicated
CPT/HCPCS: 45385; 88305; J2003; J2704; J7120

== ENCOUNTER 2024-08-13 12:33 | Outpatient (CLI) | payer OTHER, SELFPAY ==
--- NOTE | ~2024-08-13 | US_ITS ---
EXAMINATION: US venous doppler UE RT DATE: 08/13/2024 13:24 INDICATION: Right arm bruising TECHNIQUE: Piña scale images with and without compression and Doppler images of the right upper extre mity veins were obtained. COMPARISON: None. FINDINGS: The right internal jugular vein, subclavian vein, axillary vein, brachial veins, basilic vein, cephal ic vein, radial vein, and ulnar vein are patent. IMPRESSION: 1. Patent right upper extremity veins. No evidence of deep venous thrombosis. Reviewed, dictated and finalized at location A.
--- OUTSIDE RECORDS SUMMARY | 2024-08-13 13:39 | XMS_ITS | Clinical Summary ---
Author Organization [facility] Address [address] [facility], [facility] [address] [place] [address] Phone Care Team Providers Care Head Cager Name Role Phone Eli Pryor MD Primary Care Provider [phone] Allergies Active Allergy Reactions Criticality Noted Date [...] Comments Blood Pressure 118/80 05/20/2015 8:30 AM BINDER FOLDER OPERATOR Pulse 60 05/20/2015 8:30 AM BINDER FOLDER OPERATOR Temperature 35.9 C (96.6 F) 04/09/2015 12:05 PM BINDER FOLDER OPERATOR Respiratory Rate 16 04/09/2015 12:05 PM BINDER FOLDER OPERATOR Oxygen Saturation 97% 04/09/2015 12:05 PM BINDER FOLDER OPERATOR Inhaled Oxygen Concentration - - Weight 58.5 kg (129 lb) 05/20/2015 8:30 AM BINDER FOLDER OPERATOR Height 167.6 cm (5' 6 ) 05/20/2015 8:30 AM BINDER FOLDER OPERATOR Body Mass Index 20.82 05/20/2015 8:30 AM BINDER FOLDER OPERATOR Plan of Treatment Health Maintenance Due Date Last Done Comments Hepatitis C Virus (HCV) Screening 1968 TdaP Immunization 1968 Hepatitis B Immunization (1 of 3 - 19+ 3-dose series) 01/18/1987 Colonoscopy 01/18/2013 Colorectal Cancer Screening 01/18/2013 Cologuard 01/18/2018 Immunochemical Fecal Occult Blood 01/18/2018 Pneumococcal Immunization (5 0+ years) (1 of 1 - PCV) 01/18/2018 Zoster Immunization (1 of 2) 01/18/2018 Influenza Immunization (#1) 2024 SARS-COV-2 Immunization ( - 2023- season) 2024 Respiratory Syncytial Virus (RSV) Immunization (Adult) (1 - 1-dose 75+ series) 01/18/2043 Meningococcal Immunization (ACWY) Aged Out No longer eligible based on patient's age to complete this topic Rotavirus Immunization Aged Out No lo nger eligible based on patient's age to complete this topic Care Teams Head Cager Relationship Specialty Start Date End Date Eli Pryor MD [address] [place] [address] PCP - General Family Medicine 03/17/15
--- OUTSIDE RECORDS SUMMARY | 2024-08-13 13:39 | XMS_ITS | Referral Summary ---
Author Organization [facility] Address [address] [place] [address] Care Team Providers Care Thermal Engineer Name Role Phone BrentNica cabral SARAH Primary Care Provider [phone] Allergies Active Allergy Reactions Criticality Noted Date [...] 06/23/2022 Assessment & Plan (06/23/2022 3:22 PM CONSUMER INSIGHTS SPECIALIST): Fasting labs ordered- cbc, cmp, lipids, tsh Follow up in 1 year-annual Future labs ordered Continue current medications as directed Gastroesophageal reflux disease without esophagi tis 06/23/2022 Assessment & Plan (06/23/2022 2:56 PM CONSUMER INSIGHTS SPECIALIST): GI consulted Avoid greasy, spicy, fried, fatty [...] alone Assessment & Plan (06/23/2022 2:59 PM CONSUMER INSIGHTS SPECIALIST): Continue current Bupropion and Trintellix Continue to monitor mood status Will plan on managing medications Encouraged to seek counseling-patient advised that medication and counseling together have more positive outcomes than medication alone Encouraged to seek emergency help if having suicidal thoughts Breast implant status 06/23/2022 Assessment & Plan (06/23/2022 2:57 PM CONSUMER INSIGHTS SPECIALIST): Bilateral breast implant Recent finding of left ruptured implant Consult Dr. Ugalde Weight gain 06/23/2022 Assessment & Plan (06/23/2022 3:17 PM CONSUMER INSIGHTS SPECIALIST): Encouraged to join club for water aerobics to help lose weight without pain to joints Healthy diet-low carb, low fat Lab ordered-TSH Continue levothyroxine as directed History of colon polyps 06/23/2022 Assessment & Plan (06/23/2022 3:03 PM CONSUMER INSIGHTS SPECIALIST): GI consult ordered for diagnostic screening Healthy diet Tobacco use 06/23/2022 Assessment & Plan (06/23/2022 3:07 PM CONSUMER INSIGHTS SPECIALIST): Encouraged to stop smoking We discussed health risks and worsening of pulmonary emphysema if continues to smoke Centrilobular emphysema 06/23/2022 Assessment & Plan (06/23/2022 3:17 PM CONSUMER INSIGHTS SPECIALIST): Stop smoking Plan to increase Bupropion if needed to help with smoking cessation Will plan to order ct chest-routine to monitor for worsening of emphysema Continue with albuterol inh as directed Arthritis 06/27/2013 Overview (08/11/2016): Inflammatory arthritis Assessment & Plan (06/23/2022 3:16 PM CONSUMER INSIGHTS SPECIALIST): Continue current medication methotrexate with folic acid Continue Tramadol as directed Resolved Problems Problem Noted Date Diagnosed Date Resolved Date History of nephrolithiasis 06/23/2022 0 06/23/2022 BMI 27.0-27.9,adult 06/23/2022 10/07/19 Assessment & Plan (06/23/2022 2:55 PM CONSUMER INSIGHTS SPECIALIST): Continue current medication phentermine to help manage weight control Phentermine ordered Healthy diet Water exercises Closed head injury 01/27/2021 Concussion with no loss of consciousness 01/27/2021 06/23/2022 Forehead contusion, initial encounter 01/27/2021 06/23/2022 Pleurisy 06/27/2013 06/23/2022 Overview (08/11/2016): Pleuritis Cardiomyopathy 06/27/2013 06/23/2022 Overview (08/11/2016): Cardiomyopathy Immunizations Immunization Administration Dates Next Due Influenza, Unspecified 06/23/2022(Deferr [...] on file Legal Sex Female 1:23 AM CONSUMER INSIGHTS SPECIALIST Gender Identity Not on file Sexual Orientation Not on file Last Filed Vital Signs Vital Sign Reading Time Taken Comments Blood Pressure 184/114 05/11/2024 3:08 PM CONSUMER INSIGHTS SPECIALIST Pulse 86 10/06/2022 1:37 PM CDT Temperature 37.1 C (98.8 F) 09/25/2021 3:21 PM CDT Respiratory Rate 18 10/06/2022 1:37 PM CDT Oxygen Saturation 96% 10/06/2022 1:37 PM CDT Inhaled Oxygen Concentration - - Weight 74.8 kg (165 lb) 10/06/2022 1:37 PM CDT Height 167.6 cm (5' 6 ) 10/06/2022 1:37 PM CDT Body Mass Index 26.63 10/06/2022 1:37 PM CDT Plan of Treatment Not on file Insurance CIG[employer] IBEW Member Subscriber Plan / Payer (Ef fective 2021-Present) Name:Belinda Olivo Relation to Subscriber:Self Name:Belinda Olivo Payer ID:[id number] ([facility]) Group ID:[id number] Type:CIGNA HMO/PPO Address: [facility] [id number] [place] [phone] CIGNA IBEW Member Subscriber Plan / Payer ( fective 2021-Present) Name:Belinda Olivo Relation to Subscriber:Self Name:Belinda Olivo Payer ID:[id number] ([facility]) Group ID:[id number] Type:CIGNA HMO/PPO Address: [id number] [place] [phone] C[employer] IBEW Member Subscriber Plan / Payer (Ef fective 2021-Present) Name:Belinda Olivo Relation to Subscriber:Self Name:Belinda Olivo Payer ID:[id number] ([employer]) Group ID:[id number] Type:KARENNA HMO/PPO Address: [facility] [id number] [place] [address] Care Teams Thermal Engineer Relationship Specialty Start Date End Date Nica Noe NP [address] [place] [address] PCP - General Nurse Practitioner 05/11/24
--- OUTSIDE RECORDS SUMMARY | 2024-08-13 13:39 | XMS_ITS | Clinical Summary ---
Author Organization [facility] Address [address] [place] [address] Care Team Providers Care Director Bioinformatics Name Role Phone BrentNica cabral SARAH Primary Care Provider [phone] Allergies Active Allergy Reactions Criticality Noted Date [...] 06/23/2022 Assessment & Plan (06/23/2022 3:22 PM CLINICAL LAB ASSISTANT): Fasting labs ordered- cbc, cmp, lipids, tsh Follow up in 1 year-annual Future labs ordered Continue current medications as directed Gastroesophageal reflux disease without esophagi tis 06/23/2022 Assessment & Plan (06/23/2022 2:56 PM CLINICAL LAB ASSISTANT): GI consulted Avoid greasy, spicy, fried, fatty [...] alone Assessment & Plan (06/23/2022 2:59 PM CLINICAL LAB ASSISTANT): Continue current Bupropion and Trintellix Continue to monitor mood status Will plan on managing medications Encouraged to seek counseling-patient advised that medication and counseling together have more positive outcomes than medication alone Encouraged to seek emergency help if having suicidal thoughts Breast implant status 06/23/2022 Assessment & Plan (06/23/2022 2:57 PM CLINICAL LAB ASSISTANT): Bilateral breast implant Recent finding of left ruptured implant Consult Dr. Ugalde Weight gain 06/23/2022 Assessment & Plan (06/23/2022 3:17 PM CLINICAL LAB ASSISTANT): Encouraged to join club for water aerobics to help lose weight without pain to joints Healthy diet-low carb, low fat Lab ordered-TSH Continue levothyroxine as directed History of colon polyps 06/23/2022 Assessment & Plan (06/23/2022 3:03 PM CLINICAL LAB ASSISTANT): GI consult ordered for diagnostic screening Healthy diet Tobacco use 06/23/2022 Assessment & Plan (06/23/2022 3:07 PM CLINICAL LAB ASSISTANT): Encouraged to stop smoking We discussed health risks and worsening of pulmonary emphysema if continues to smoke Centrilobular emphysema 06/23/2022 Assessment & Plan (06/23/2022 3:17 PM CLINICAL LAB ASSISTANT): Stop smoking Plan to increase Bupropion if needed to help with smoking cessation Will plan to order ct chest-routine to monitor for worsening of emphysema Continue with albuterol inh as directed Arthritis 06/27/2013 Overview (08/11/2016): Inflammatory arthritis Assessment & Plan (06/23/2022 3:16 PM CLINICAL LAB ASSISTANT): Continue current medication methotrexate with folic acid Continue Tramadol as directed Resolved Problems Problem Noted Date Diagnosed Date Resolved Date History of nephrolithiasis 06/23/2022 0 06/23/2022 BMI 27.0-27.9,adult 06/23/2022 10/07/19 Assessment & Plan (06/23/2022 2:55 PM CLINICAL LAB ASSISTANT): Continue current medication phentermine to help manage [...] Bilateral tubal ligation SECTION 1997 section HYSTERECTOMY 2003 Hysterectomy Medical History Medical History Date Comments [...] on file Legal Sex Female 1:23 AM CLINICAL LAB ASSISTANT Gender Identity Not on file Sexual Orientation Not on file Obstetrics History Last Filed Vital Signs Vital Sign Reading Time Taken Comments Blood Pressure 184/114 05/11/2024 3:08 PM CLINICAL LAB ASSISTANT Pulse 86 10/06/2022 1:37 PM CDT Temperature [...] Cancer Screening-Colonoscopy 1968 Hepatitis C Screening 1968 DTaP/Tdap/Td Vaccine (1 - Tdap) 01/18/1979 Hepatitis B Screening 01/18/1986 Pneumococcal vaccine <65 (1 of 2 - PCV) 01/18/1987 Zoster Vaccine (1 of 2) 01/18/1987 Covid-19 Vaccine (3 - Pfizer risk series) 11/14/2020 10/17/2020, 09/26/2020 Regular Well Visit/Exam 18-64 06/23/2023 06/23/2022 Depression Screening 10/07/2023 10/06/2022, 06/23/19 23 Influenza Vaccine (#1) 2024 Insurance CIGNA IBEW Member Subscriber Plan / Payer (Ef fective 2021-Present) Name:Belinda Olivo Relation to Subscriber:Self Name:Belinda Olivo Payer ID:[id number] ([facility]) Group ID:[id number] Type:CIGNA HMO/PPO Address: [id number] [place] [phone] CIGNA IBEW Member Subscriber Plan / Payer (Ef fective 2021-Present) Name:Belinda Olivo Relation to Subscriber:Self Name:Belinda Olivo Payer ID:[id number] ([employer]) Group ID:[id number] Type:CIGNA HMO/PPO Address: [address] [place] [phone] CIGNA IBEW Member Subscriber Plan / Payer (Ef fective 2021-Present) Name:Belinda Olivo Relation to Subscriber:Self Name:Belinda Olivo Payer ID:[id number] ([employer]) Group ID:[id number] Type:CIGNA HMO/PPO Address: [facility] [id number] [phone] Care Teams Director Bioinformatics Relationship Specialty Start Date End Date Nica Noe NP [address] [place] [address] PCP - General Nurse Practitioner 05/11/24
--- OUTSIDE RECORDS SUMMARY | 2024-08-13 13:39 | XMS_ITS | CONTINUITY OF CARE DOCUMENT ---
Author Name jorge a, jorge a Address Unknown Organization [facility] Address [address] [place] [address] [address] [place] [address] Phone [phone] Care Team Providers Care Web Analytics Developer Name Role Phone Ever HANSON, Jesus Salamanca Unavailable ISAI SMALL ENGINE TRAINER, CARL Unavailable MARY JANE MENA MD Unavailable ENCOUNTERS Date Type Provider Location Encounter Diagnosis - In-person encounter Office Visit Jesus Curtis MD [place] [facility] VITAL SIGNS Date Observation Value Provider [...] Payer name Policy type / Coverage type [place] red republican ID [employer] OPEN ACCESS Other [id number] TREATMENT PLAN Date Name Performer hosp f/u [...]
--- OUTSIDE RECORDS SUMMARY | 2024-08-13 13:39 | XMS_ITS | Clinical Summary ---
Author Organization [facility] Address [address] [place] [address] [place] [address] Care Team Providers Care Cooling Tower Operator Name Role Phone iNca Noe EMPLOYMENT ASSISTANT-LENS MOLDER Primary Care Provider + Addy Pepe MD Unavailable Pooja Miller APRN-LENS MOLDER Unavailable [phone] Source Comments [facility],non-owned Affiliates and Associated Physician Practices is amultiple site organization consisting of ambulatory clinics and hospital sitesin [place], [place], [place] and [place]. This disclosure is being madepursuant to the Care Everywhere program and may not contain all information available regarding this patient. Last updated 18.[facility] Allergies Active Allergy Reactions Criticality Noted Date [...] methotrexate 2.5 MG tabletIndications: Undifferentiated inflammatory arthritis Take 10 (ten) tablets by mouth every 7 days 25mg po qweek 120 tablet 1 11/20/2023 Active folic acid (Folvite) 1 MG tabletIndications: Undifferentiated inflammatory arthritis Take 1 (one) tablet by mouth once [...] Esophageal motility disorder 04/06/2020 [facility] with negative rheumatoid factor 02/25/2020 Encounters Date Type Department Care Team Description 05/23/2024 11:30 AM PLANT RELIABILITY ENGINEER Office Visit [facility] - Rheumatology [id number] [place] [id number] Pooja Miller APRN-RAFI Seronegative arthritis (Primary Dx); Undifferentiated inflammatory arthritis; Rheumatoid arthritis of multiple sites with negative rheumatoid factor; Polyarthralgia; Immunosuppressed status; High risk medication use from Last 3 Months Social History Tobacco [...] Comments Blood Pressure 136/86 05/23/2024 11:46 AM PLANT RELIABILITY ENGINEER Pulse 80 05/23/2024 11:46 AM PLANT RELIABILITY ENGINEER Temperature 36.6 C (97.9 F) 12/16/2020 8:52 AM CDT Respiratory Rate 18 05/23/2024 11:46 AM PLANT RELIABILITY ENGINEER Oxygen Saturation 96% 05/23/2024 11:46 AM PLANT RELIABILITY ENGINEER Inhaled Oxygen Concentration - - Weight 68.7 kg (151 lb 6.4 oz) 05/23/2024 11:46 AM PLANT RELIABILITY ENGINEER Height 167.6 cm (5' 6 ) 05/23/2024 11:46 AM PLANT RELIABILITY ENGINEER Body Mass Index 24.44 05/23/2024 11:46 AM PLANT RELIABILITY ENGINEER Plan of Treatment Upcoming Encounters Date Type Department Care Team (Late st Contact Info) Description 08/20/2024 10:30 AM CDT Office Visit [facility] - Rheumatology [address] [place] [address] Pooja Miller, AIDEE-LENS MOLDER [address] [facility] [address] [place] [address] Health Maintenance Due Date Last Done Comments [...] 50+ (1 of 2 - PCV) 01/18/1987 ZOSTER VACCINE (1 of 2) 01/18/1987 DEPRESSION SCREENING 05/08/2024 11/20/2023 INFLUENZA VACCINE (Season Ended) 2025 HEPATITIS C SCREENING Completed 02/19/2024 , 12/14/2022 HIB VACCINE Aged Out No longer eligi ble based on patient's age to complete this topic HPV VACCINE Aged Out No longer eligi ble based on patient's age to complete this topic MENINGOCOCCAL (Group B) VACCINE SHARED DECISION-MAKING Aged Out No longer eligible based on patient's age to complete this topic MENINGOCOCCAL GROUPS A/C/Y/W VACCINE Aged Out No longer eligible b [...] Comment: For additional information, please refer to http://NextBio.BeVocal/faq/IHW825 (This link is being provided for informational/ educational purposes only.) Hepatitis B Virus Surface Antibody NON-REACTI VE NON-REACT [facility] Hepatitis B Virus Surface Antigen NON-REACTI VE NON-REACT [facility] Comment: For additional information, please refer to http://IPextreme/faq/LEO096 (This link is being provided for informational/ educational purposes only.) Hepatitis B Core Virus Antibody Total NON-REACTI VE NON-REACT [facility] Comment: For additional information, please refer to http://IPextreme/faq/YEI357 (This link is being provided for informational/ educational purposes only.) Hepatitis C Antibody NON-REACTI VE NON-REACT [facility] Comment: HCV antibody was non-reactive. There is no laboratory evidence of HCV infection. In most cases, no further action is required. However, if recent HCV exposure is suspected, a test for HCV RNA (test code 64406) is suggested. For additional information please refer to http://education.SpareFoot.broadbandchoices/faq/MWP69p6 (This link is being provided for informational/ educational purposes only.) REPORT COMMENT: FASTING:YES Test Performed at: [facility] [id number] [id number] MK GARIBAY MD 02/19/2024 12:5 8 PM CDT 02/19/2024 12:58 PM CDT Addy Pepe MD LAB - CHEMISTRY [place] [place] [facility] [address] [place] [address] from Last 3 Months or Most Recently Relevant to Health Maintenance Care Teams Cooling Tower Operator Relationship Specialty Start Date End Date Nica Noe APRN-RAFI [address] [place] [address] [address] [place] [address] PCP - General Nurse Practitioner 12/14/22 [place] [id number] [place] [id number] Rheumatology 12/14/22 Pooja Miller APRN-LENS MOLDER [address] [place] [address] Nurse Practitioner 05/23/24
== END 2024-08-13 12:34 | disposition home or self-care (01) ==
PROVIDERS: PCP Nurse Practitioner Adult Health; Visit Provider Nurse Practitioner Adult Health
DX: M79.89 Other specified soft tissue disorders (principal)
CPT/HCPCS: 93971